=== PATIENT | male | born 1965 | race Caucasian/White ===

== ENCOUNTER 2020-01-01 07:14 | Outpatient (REF) | payer OTHER, SELFPAY | END 2020-01-01 07:15 | disposition home or self-care (01) | LOC: HO.LAB 07:14 | PROVIDERS: PCP Nurse Practitioner Family; Visit Provider Internal Medicine | DX: Z20.828 Contact with and (suspected) exposure to other viral communicable diseases (principal) | CPT/HCPCS: C9803; U0003 ==

== ENCOUNTER 2020-06-16 08:42 | Outpatient (REF) | payer OTHER, SELFPAY ==
--- NOTE | ~2020-06-16 | XR_ITS ---
EXAMINATION: XR CHEST CLINICAL INFORMATION: Dyspnea COMPARISON: None TECHNIQUE: 2 views of the chest were obtained. FINDINGS: The cardiac and mediastinal contours are normal. There is slight elevation of the right hemidiaphragm. There are increased markings best appreciated on the lateral view overlying the anterior lower lobes. This is questionable for atelectasis or small pneumonia. The lungs are otherwise clear. There is no pleural effusion or pneumothorax. Bony structures are unremarkable. XR/XR chest 2V IMPRESSION: Question lower lobe atelectasis or small pneumonia seen on the lateral view. Slightly elevated right hemidiaphragm.
[2020-06-16 11:22] LABS: MANUAL DIFF FLAG NO
[2020-06-16 11:30] LABS: Basophils Percent Auto 0.5 % (0-2); Eosinophils Absolute Auto 0.1 X10*3/uL (0.0-0.4); Hematocrit 45.9 % (42-52); Imm Gran Abs Auto 0.03 X10*3/uL (0.00-0.03); Imm Gran Pct Auto 0.4 % (0.0-0.4); Lymphocytes Absolute Auto 1.3 X10*3/uL (1.2-4.9); Lymphocytes Percent Auto 16.4 % (20-40); Mean Corpuscular HGB Conc 32.7 g/dl (31.0-36.0); Mean Corpuscular Hemoglobin 29.7 pg (27.0-33.0); Mean Corpuscular Volume 90.9 fL (80-98); Mean Platelet Volume 9.4 fL (9.4-12.4); Monocytes Absolute Auto 0.9 X10*3/uL (0.1-1.2); Monocytes Percent Auto 10.5 % (2-11); Neutrophils Absolute Auto 5.8 X10*3/uL (2.0-8.3); Neutrophils Percent Auto 71.2 % (45-73); Platelet Count 254 X10*3/uL (160-400); Red Blood Count 5.05 X10*6/uL (4.60-5.80); Red Cell Distribution Width 11.9 % (11.0-16.0); White Blood Count 8.2 X10*3/uL (4.8-10.8)
[2020-06-16 11:47] LABS: Anion Gap 15 (12-20); Blood Urea Nitrogen 19 mg/dL (9-16); Calcium 9.4 mg/dL (8.4-10.2); Carbon Dioxide 27 mmol/L (22-29); Chloride 102 mmol/L (96-108); Estimated Glomerular Filt Rate > 60; Glucose Random 94 mg/dL (60-115); Potassium 4.4 mmol/L (3.3-5.1); Sodium 140 mmol/L (135-145)
[2020-06-17 11:26] LABS: Lyme Abs Screen <0.90 index
== END 2020-06-16 08:43 | disposition home or self-care (01) ==
LOC: HO.LAB 08:42
PROVIDERS: Visit Provider Nurse Practitioner Family
DX: Z20.822 Contact with and (suspected) exposure to COVID-19 (principal); R06.00 Dyspnea, unspecified
CPT/HCPCS: 36415; 71046; 80048; 85025; 86617; 86618; U0003; U0005

== ENCOUNTER 2020-06-16 08:48 | Outpatient (REF) | payer OTHER, SELFPAY | END 2020-06-16 08:49 | disposition home or self-care (01) | LOC: HO.HMGCX 08:48 | PROVIDERS: PCP Nurse Practitioner Family; Visit Provider Nurse Practitioner Family | DX: Z13.89 Encounter for screening for other disorder (principal) ==

== ENCOUNTER 2020-09-11 06:58 | Outpatient (REF) | payer OTHER, SELFPAY ==
[2020-09-11 11:23] LABS: Glucose Urine UA NEG (NEG); Leukocyte Esterase Urine NEG (NEG); Nitrite Urine NEG (NEG); PH 6.5 (5.0-8.0); Urine Blood NEG (NEG); Urine Ketones NEG (NEG); Urine Protein NEG (NEG-TRACE)
[2020-09-11 11:29] LABS: Appearance Urine CLEAR; Color Urine YELLOW
[2020-09-11 11:35] LABS: Alanine Aminotransferase 34 U/L (0-40); Albumin Level 4.6 g/dL (3.5-5.0); Alkaline Phosphatase 67 U/L (39-117); Anion Gap 13 (12-20); Aspartate Amino Transferase 23 U/L (5-37); Bilirubin Total 0.6 mg/dL (0.0-1.0); Blood Urea Nitrogen 19 mg/dL (9-16); Calcium 9.9 mg/dL (8.4-10.2); Carbon Dioxide 26 mmol/L (22-29); Chloride 105 mmol/L (96-108); Cholesterol 245 mg/dL; Estimated Glomerular Filt Rate > 60; Glucose Fasting 87 mg/dL (60-99); HDL Cholesterol 41 mg/dL; LDL Cholesterol Calculated 152 mg/dl; Potassium 4.3 mmol/L (3.3-5.1); Sodium 140 mmol/L (135-145); Total Protein 7.4 g/dL (6.5-8.0); Triglycerides 263 mg/dL
[2020-09-11 11:57] LABS: Prostate Specific Antigen Scr 0.48 ng/mL (<0.05-4.0); TSH reflex Free T4 3.08 uIU/mL (0.32-4.0)
== END 2020-09-11 06:59 | disposition home or self-care (01) ==
LOC: HO.HMGCLDS 06:58
PROVIDERS: PCP Nurse Practitioner Family; Visit Provider Nurse Practitioner Family
DX: Z00.00 Encounter for general adult medical examination without abnormal findings (principal); Z12.5 Encounter for screening for malignant neoplasm of prostate
CPT/HCPCS: 36415; 80053; 80061; 81003; 84153; 84443

== ENCOUNTER 2020-10-06 08:03 | Outpatient (REF) | payer OTHER, SELFPAY ==
--- NOTE | ~2020-10-06 | MR_ITS ---
EXAMINATION: MR THORACIC SPINE WITHOUT CONTRAST CLINICAL INFORMATION: Pain in the thoracic spine. COMPARISON: Chest radiograph 06/16/2020. TECHNIQUE: MRI of the thoracic spine was obtained using routine sequences without contrast. FINDINGS: Alignment is normal. Vertebral body heights are preserved. No acute bone marrow signal changes. There is slight loss of intervertebral disc height and T2 signal intensity at multiple levels. There is a right central extrusion at T10-T11 with 1.3 cm caudal subligamentous extension of extruded disc material. Slightly bulging discs are also visualized at C6-C7 and C7-T1. No canal or neuroforaminal compromise. No cord compression or abnormal intramedullary signal changes. Limited visualization of intrathoracic anatomy reveals no abnormal finding. Specifically no paraspinal soft tissue mass or collection. MR/MR thoracic spine wo con IMPRESSION: There is a right central extrusion at T10-T11 with caudal subligamentous extension of extruded disc material. Slightly bulging discs are also visualized at C6-C7 and C7-T1. Otherwise unremarkable examination. No canal or neuroforaminal compromise within the thoracic spine. No cord compression or abnormal intramedullary signal changes.
== END 2020-10-06 08:04 | disposition home or self-care (01) ==
LOC: HO.MRI 08:03
PROVIDERS: PCP Nurse Practitioner Family; Visit Provider Nurse Practitioner Family
DX: M54.6 Pain in thoracic spine (principal)
CPT/HCPCS: 72146

== ENCOUNTER 2021-02-02 07:00 | Outpatient (RCR) | payer OTHER, SELFPAY ==
--- NOTE | 2020-12-08 10:29 | MHC.PT.EP ---
[facility] [place] Office [place] Office [place] [facility] [address] [phone] F: [phone] F: [phone] F: [phone] F: [phone] Physical Therapy Plan of Care Date of Evaluation: Date of Surgery: Diagnosis: thoracic spine pain Assessment: The patient arrived reporting pain in his thoracic spine and cervical spine. An MRI shows a disc extrusion at T10-T11, and a disc bulg at C6-C7-T1. 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 The patient was educated regarding sitting posture, posture while working, sleeping posture, and reductive stretches to help manage his pain throughout the day. He is a good candidate for skilled PT. Frequency and Duration: The patient will be seen 2x/week x 4 weeks. Short Term Goals: 1.Pt to able to demonstrate proper sitting posture with the use of a lumbar roll to decrease aggravating factors. 2.Pt to be able to demonstrate proper posture for common leisure activities such as phone/tablet use. 3.For the patient to demonstrate proper upright sitting posture with use of the lumbar roll to improve compliance and carryover. Supervisor Rolling Room Goals: 4 weeks - 1.The patient to demonstrate proper lifting mechanics for household chore activities to show improved functional mobility. 2.The patient to report no leg or hip pain in order to show centralization of pain and reduction of lumbar derangement 3. Pt to be able to demonstrate self management of lumbar pain by demonstration of HEP. Treatment Plan: Modalities to reduce pain, spasms and effusion. Manual therapy to restore motion and function. Therapeutic exercise to improve strength and flexibility. Neuromuscular re-education for posture and balance. Therapeutic activities to return to functional activities of daily living. Electronically signed by: Fariba Finney PT DPT Please sign and return to therapist. Thank you for your referral.
== END 2021-02-02 09:03 | disposition home or self-care (01) ==
LOC: HO.PT 07:00
PROVIDERS: PCP Nurse Practitioner Family; Visit Provider Nurse Practitioner Family
DX: M54.6 Pain in thoracic spine (principal)
CPT/HCPCS: 97110; 97112; 97162; 97530

== ENCOUNTER 2021-02-11 07:40 | Outpatient (REF) | payer OTHER, SELFPAY ==
[2021-02-11 11:19] LABS: Appearance Urine CLEAR; Color Urine YELLOW; Glucose Urine UA NEG (NEG); Leukocyte Esterase Urine NEG (NEG); Nitrite Urine NEG (NEG); PH 6.5 (5.0-8.0); Urine Blood NEG (NEG); Urine Ketones NEG (NEG); Urine Protein NEG (NEG-TRACE)
[2021-02-11 12:00] LABS: Cholesterol 226 mg/dL; HDL Cholesterol 53 mg/dL; LDL Cholesterol Calculated 145 mg/dl; Triglycerides 140 mg/dL
== END 2021-02-11 07:41 | disposition home or self-care (01) ==
LOC: HO.HMGCLDS 07:40
PROVIDERS: PCP Nurse Practitioner Family; Visit Provider Nurse Practitioner Family
DX: Z00.00 Encounter for general adult medical examination without abnormal findings (principal); E78.5 Hyperlipidemia, unspecified
CPT/HCPCS: 36415; 80061; 81003

== ENCOUNTER 2021-10-06 08:51 | Outpatient (REF) | payer OTHER, SELFPAY ==
--- NOTE | ~2021-10-06 | XR_ITS ---
EXAMINATION: XR KNEE, LEFT CLINICAL INFORMATION: Pain COMPARISON: None TECHNIQUE: Three views of the left knee. FINDINGS: No fracture or dislocation. No suprapatellar joint effusion. There is mild soft tissue swelling of the anterior knee. Joint spaces are maintained. XR/XR knee LT 3V IMPRESSION: Soft tissue swelling of the anterior knee without fracture.
== END 2021-10-06 08:52 | disposition home or self-care (01) ==
LOC: HO.HMGCX 08:51
PROVIDERS: PCP Nurse Practitioner Family; Visit Provider Family Medicine
DX: M25.562 Pain in left knee (principal)
CPT/HCPCS: 73562

== ENCOUNTER 2022-01-19 08:19 | Outpatient (REF) | payer OTHER, SELFPAY ==
[2022-01-19 11:23] LABS: MANUAL DIFF FLAG NO
[2022-01-19 11:34] LABS: Appearance Urine Clear; Color Urine Yellow; Glucose Urine UA Negative (Negative); Leukocyte Esterase Urine Negative (Negative); Nitrite Urine Negative (Negative); Urine Blood Negative (Negative); Urine Ketones Negative (Negative); Urine Protein Negative (Neg-Trace)
[2022-01-19 11:38] LABS: Basophils Percent Auto 0.6 % (0-2); Eosinophils Absolute Auto 0.1 X10*3/uL (0.0-0.4); Eosinophils Percent Auto 1.5 % (0-4); Hematocrit 46.1 % (42.0-52.0); Hemoglobin 14.9 g/dl (14.0-18.0); Imm Gran Abs Auto 0.02 X10*3/uL (0.00-0.03); Imm Gran Pct Auto 0.4 % (0.0-0.4); Lymphocytes Absolute Auto 1.8 X10*3/uL (1.2-4.9); Mean Corpuscular HGB Conc 32.3 g/dl (31.0-36.0); Mean Corpuscular Hemoglobin 29.9 pg (27.0-33.0); Mean Corpuscular Volume 92.6 fL (80.0-98.0); Mean Platelet Volume 9.5 fL (9.4-12.4); Monocytes Absolute Auto 0.6 X10*3/uL (0.1-1.2); Monocytes Percent Auto 10.2 % (2-11); Neutrophils Absolute Auto 2.9 x10*3/uL (2.0-8.3); Neutrophils Percent Auto 54.3 % (45-73); Platelet Count 207 X10*3/uL (160-400); Red Blood Count 4.98 X10*6/uL (4.60-5.80); Red Cell Distribution Width 12.3 % (11.0-16.0); White Blood Count 5.4 X10*3/uL (4.8-10.8)
[2022-01-19 12:12] LABS: Alanine Aminotransferase 38 U/L (0-40); Albumin Level 4.5 g/dL (3.5-5.0); Alkaline Phosphatase 67 U/L (39-117); Anion Gap 11 (12-20); Aspartate Amino Transferase 24 U/L (5-37); Bilirubin Total 0.5 mg/dL (0.0-1.0); Blood Urea Nitrogen 19 mg/dL (9-16); Calcium 9.7 mg/dL (8.4-10.2); Carbon Dioxide 30 mmol/L (22-29); Chloride 104 mmol/L (96-108); Cholesterol 225 mg/dL; Estimated Glomerular Filt Rate > 60; Glucose Fasting 99 mg/dL (60-99); HDL Cholesterol 52 mg/dL; LDL Cholesterol Calculated 142 mg/dl; Potassium 4.6 mmol/L (3.3-5.1); Sodium 140 mmol/L (135-145); TSH reflex Free T4 1.67 uIU/mL (0.32-4.0); Total Protein 6.9 g/dL (6.5-8.0); Triglycerides 157 mg/dL
== END 2022-01-19 08:20 | disposition home or self-care (01) ==
LOC: HO.HMGCLDS 08:19
PROVIDERS: PCP Nurse Practitioner Family; Visit Provider Nurse Practitioner Family
DX: Z00.00 Encounter for general adult medical examination without abnormal findings (principal)
CPT/HCPCS: 36415; 80053; 80061; 81003; 84443; 85025

== ENCOUNTER 2022-02-01 06:00 | Day surgery (SDC) | payer OTHER, SELFPAY ==
[2022-01-27 10:26] VITALS: BMI 26.0
--- NOTE | 2022-01-31 08:18 | P.CONAN_ITS ---
Documented by User: Viki Car NP 01/31/22 08:22 HPI - Anesthesia Eval Consult details Narrative: 56yo M for Left Hernia Repair Inguinal with mesh PMFSH Active Problems Active Problems: All Active Problems (Updated 01/26/22 @ 16:16 by Alycia Mishra RN) Generalized body aches (Acute) Dyspnea on exertion (Acute) Fever (Acute) Physical exam (Acute) Screening PSA (prostate specific antigen) (Acute) Thoracic back pain (Acute) Dyslipidemia (Acute) Thoracic disc herniation (Acute) Chest discomfort (Acute) Inguinal hernia (Acute) Left knee pain (Acute) Prepatellar bursitis (Acute) Physical exam (Acute) Inguinal hernia (Acute) HTN (hypertension) (Acute) Dyslipidemia (Acute) Family history of pancreatic cancer (Acute) Left inguinal hernia (Acute) Past Medical History Medical History Elevated cholesterol Family history of pancreatic cancer HTN (hypertension) Left inguinal hernia Family History Family History Maternal Aunt No problems noted. Father Substance use disorder Mother Substance use disorder Mental health disorder Maternal Grandfather Substance use disorder Maternal Grandmother Substance use disorder Paternal Grandfather Substance use disorder Paternal Uncle Substance use disorder Maternal Aunt Substance use disorder Paternal Aunt Substance use disorder Maternal Uncle Substance use disorder Family/Other Mental health disorder Surgical History Surgical History (Updated 01/27/22 @ 10:25 by Alycia Mishra RN) History of right inguinal hernia repair Hx of colonoscopy Social History Social History Housing: House Patient Tobacco Use Status: Former Tobacco user Years Smoked: 40 years ago e-Cigarette/Vaping Use: Never Used Second Hand Smoke Exposure: No Use of substances other than those prescribed or required for medical reasons: No Are you DNR?: No Advance Directives: No Advance Directives Information Provided: Yes Recently lost weight without trying: No service: No Current occupational status: employed 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 Current occupational exposures/hazards: No Cognitive needs: No Hearing needs: No Vision needs: No Meds Allergies Allergy/AdvReac Type Severity Reaction Status Date / Time rosuvastatin [Crestor] AdvReac Unknown muscle Verified 01/27/22 10:25 cramping Exam Exam Date and Time: January 31, 202218 Height,Weight and Vital Signs: Height 5 ft 8 in Weight 77.678 kg Pertinent Lab Results Pertinent Lab Results: Laboratory Tests 01/19/22 01/19/22 08:29 08:29 WBC 5.4 Hgb 14.9 Hct 46.1 Plt Count 207 Sodium 140 Potassium 4.6 Chloride 104 Carbon Dioxide 30 H BUN 19 H Creatinine 0.98 Narrative Narrative: EKG 09/2021 NSR @ 61 Assessment and Plan Assessment Anesthesia Assessment: Chart Reviewed Documented by User: Mayela Matthew MD 02/01/22 07:25 PMF Past Medical History Medical History Elevated cholesterol Family history of pancreatic cancer HTN (hypertension) Left inguinal hernia Family History Family History Maternal Aunt No problems noted. Father Substance use disorder Mother Substance use disorder Mental health disorder Maternal Grandfather Substance use disorder Maternal Grandmother Substance use disorder Paternal Grandfather Substance use disorder Paternal Uncle Substance use disorder Maternal Aunt Substance use disorder Paternal Aunt Substance use disorder Maternal Uncle Substance use disorder Family/Other Mental health disorder Family history of problems with anesthesia: No Surgical History Surgical History (Updated 01/27/22 @ 10:25 by Alycia Mishra RN) History of right inguinal hernia repair Hx of colonoscopy History of Problems with Anesthesia: No Social History Social History Housing: House Patient Tobacco Use Status: Former Tobacco user Years Smoked: 40 years ago e-Cigarette/Vaping Use: Never Used Second Hand Smoke Exposure: No Use of substances other than those prescribed or required for medical reasons: No Are you DNR?: No Advance Directives: No Advance Directives Information Provided: Yes Recently lost weight without trying: No service: No Current occupational status: employed 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 Current occupational exposures/hazards: No Cognitive needs: No Hearing needs: No Vision needs: No Meds Allergies Allergy/AdvReac Type Severity Reaction Status Date / Time rosuvastatin [Crestor] AdvReac Unknown muscle Verified 01/27/22 10:25 cramping Exam Airway Mallampati Class: II TM Dist: >3cm Neck ROM: Full Loose/Missing/Broken Teeth: No Heart: rr Lungs: cta Assessment and Plan Final Anesthetic Review Family History of Problems with Anesthesia: No History of Problems with Anesthesia: No NPO: Yes ASA Class: II Final Preanesthetic Review: No Changes in Pt Med Stat, Meds/Allgs Chart Reviewed, Consent Obtained/Reviewed and Anes Risks/Benef Reviewed Patient Risk: Low Procedure Risk: Intermediate Anesthetic Plan Anesthetic Plan: GA and Agree w/ Assess. and Plan Disposition: Standard PACU
[2022-02-01] VITALS (17 sets, daily range): BP systolic 141–176; BP diastolic 92–103; PULSE 49–74; RESP 16–20; TEMP 36.2–37.2; O2SAT 95–100; BMI 25.5
[2022-02-01] MEDS: Lactated Ringers 1,000 ML 100 ML IVCONT (06:36)
--- NOTE | 2022-02-01 07:17 | P.HPSUR_ITS ---
Pre-Procedural Eval Section A Date of Service: 02/01/22 Section B Chief Complaint: Unilateral inguinal hernia, without obstruction or Details of Present Illness: left inguinal hernia, reducible Relevant Social History: None Present Medications: see Short Stay Collaborative assessment Medical History: Significant History (dyslipidemia, HTN) Allergies: Allergies Allergy/AdvReac Type Severity Reaction Status Date / Time rosuvastatin [Crestor] AdvReac Unknown muscle Verified 01/27/22 10:25 cramping Review of Systems Sugical H&P ROS: Negative: Constitution, Cardiovascular, Respiratory, Neurological, Psychiatric, Hem-Onc, Allergic/Immunologic, Gastrointestinal, Genitourinary, Musculoskeletal, Integumentary, Endocrine and Eyes/Ears/Nose/Throat Exam Surgical H&P Exam: Normal: HEENT, Normal: Heart, Normal: Lungs, Normal: Extrem ities, Normal: Skin and Normal: Neurological and Significant Findings: Abdomen (left ing hernia reducible) Plan Diagnosis/Plan: Unchanged I have reviewed the history and physical and performed a pertinent physical examination on my patient. No changes have occurred unless specified. Time Spent With Patient Time: Total time managing care of this patient today ____ minutes.
--- NOTE | 2022-02-01 08:23 | P.OP_ITS ---
Operative Note Operative Note Date of Service: 02/01/22 Narrative: Preop diagnosis: Left inguinal hernia Postop diagnosis: Left inguinal hernia, direct Procedure: Repair of a left inguinal hernia with mesh Surgeon: Saúl Driscoll MD physical laboratory assistant: DAVID Dempsey Patient is a 56-year-old male with a reducible mass of the left groin consistent with a left inguinal hernia. He understood the technique of repair with mesh. He is aware of the risks, benefits, and alternatives. He was placed fine on the OR table under general anesthesia via laryngeal mask airway. The left groin was prepped and draped in usual sterile fashion. A surgical time-out was done. The patient received cefazolin 2 g IV preoperatively I marked my planned line of incision along an imaginary line from the anterior superior iliac spine to the pubic ramus. I had filtrated this area with lidocaine 1%. I made a short incision using blade 15 and this was carried down with electrocautery through the full-thickness of the skin and subcutaneous fat to expose the external oblique aponeurosis. I bluntly dissected the neurosis using gauze to define the external ring. I made an incision on the external oblique fibers using blade 15. And extended this inferomedially to connect with the external ring. The inguinal canals at her entered. I applied hemostats on the divided edges of the aponeurosis. I bluntly dissected the underside to create space for the mesh. Then proceeded to gently and bluntly dissect the cord using my index finger. There was note of a large hernia containing fat. this from the rest of the cord contents until was completely reduced. This was going to the floor of the canal consistent with direct hernia. I was able to identify the cord contents but we had difficulty locating for the vas deferens as there was a lot of scarring in the area as well. I was able to pass a [place] drain around what we identified as the cord contents. However, I will could not clearly identify the vas deferens despite having adequately the cord contents the hernia sac. I proceeded to then reinforce the floor a canal with the Prolene plug. The plug was secured with Prolene 2 sutures to shelving edge of the inguinal and laterally and the internal oblique superiorly and medially. In force the floor of the canal with a keyhole mesh. The tails of the mesh were passed around the cord at the level of the turned a ring and were secured together with Prolene 2 sutures. I flattened the mesh and secured this to the pubic ramus inferomedially, and the internal oblique medially as superiorly as well as the shelving edge of the inguinal meant laterally I irrigated. I observed for hemostasis. Once hemostasis was ensured I proceeded to then remove the [place] drain and closed the external oblique aponeurosis were running Dexon 2-0 stitch to re-create the external ring. The subcutaneous layer was reapposed with Dexon 3-0 interrupted sutures. Skin closure was achieved with Dexon 4-0 subcuticular running stitch. Steri-Strips and dressings were applied. The incision was infiltrated with Marcaine 0.5% for postop analgesia. The procedure was completed The patient tolerated well. There were no immediate complications. Initial and final counts sponges and instruments were correct. Estimated blood loss was less than 25 cc The patient was extubated without difficulty and transferred to the recovery room with stable vital signs.
[2022-02-01] MEDS: oxyCODONE HCl Immed Release 5 MG TABLET PO (09:13)
[2022-02-01] MEDS: fentaNYL citrate/PF 100 MCG/2 ML VIAL 25 MCG IVPUSH ×3 (09:14→09:58)
[2022-02-01] MEDS: Ketorolac Tromethamine 30 MG/ML VIAL 15 MG IVPUSH (09:18)
[2022-02-01] MEDS: Acetaminophen 325 MG TABLET 650 MG PO (09:19)
== END 2022-02-01 11:37 | disposition home or self-care (01) ==
PROVIDERS: PCP Nurse Practitioner Family; Visit Provider Surgery
PROC: (CPT 49505; principal; 2022-02-01 07:30)
DX: K40.90 Unilateral inguinal hernia, without obstruction or gangrene, not specified as recurrent (principal); Z80.0 Family history of malignant neoplasm of digestive organs; I10 Essential (primary) hypertension; E78.5 Hyperlipidemia, unspecified; Z79.899 Other long term (current) drug therapy; Z88.8 Allergy status to other drugs, medicaments and biological substances; Z87.891 Personal history of nicotine dependence
CPT/HCPCS: 49505; C1781; J0690; J1885; J2250; J2550; J2795; J3010

== ENCOUNTER → 2022-02-16 15:44 | Outpatient (BNVA) | payer OTHER, SELFPAY | PROVIDERS: PCP Nurse Practitioner Family; Visit Provider Surgery | DX: K40.90 Unilateral inguinal hernia, without obstruction or gangrene, not specified as recurrent (principal) ==

== ENCOUNTER 2022-07-22 07:32 | Outpatient (REF) | payer OTHER, SELFPAY ==
[2022-07-22 11:18] LABS: MANUAL DIFF FLAG NO
[2022-07-22 11:35] LABS: Appearance Urine Clear; Color Urine Yellow; Glucose Urine UA Negative (Negative); Leukocyte Esterase Urine Negative (Negative); Nitrite Urine Negative (Negative); Urine Blood Negative (Negative); Urine Ketones Negative (Negative); Urine Protein Negative (Neg-Trace)
[2022-07-22 11:44] LABS: Basophils Percent Auto 0.4 % (0-2); Eosinophils Absolute Auto 0.1 X10*3/uL (0.0-0.4); Eosinophils Percent Auto 1.3 % (0-4); Hematocrit 46.5 % (42.0-52.0); Imm Gran Abs Auto 0.03 X10*3/uL (0.00-0.03); Imm Gran Pct Auto 0.4 % (0.0-0.4); Lymphocytes Absolute Auto 2.3 X10*3/uL (1.2-4.9); Lymphocytes Percent Auto 30.1 % (20-40); Mean Corpuscular HGB Conc 32.3 g/dl (31.0-36.0); Mean Corpuscular Hemoglobin 30.4 pg (27.0-33.0); Mean Corpuscular Volume 94.1 fL (80.0-98.0); Mean Platelet Volume 9.8 fL (9.4-12.4); Monocytes Absolute Auto 0.6 X10*3/uL (0.1-1.2); Monocytes Percent Auto 8.5 % (2-11); Neutrophils Absolute Auto 4.5 x10*3/uL (2.0-8.3); Neutrophils Percent Auto 59.3 % (45-73); Platelet Count 193 X10*3/uL (160-400); Red Blood Count 4.94 X10*6/uL (4.60-5.80); Red Cell Distribution Width 12.3 % (11.0-16.0); White Blood Count 7.6 X10*3/uL (4.8-10.8)
[2022-07-22 12:15] LABS: Alanine Aminotransferase 29 U/L (0-40); Albumin Level 4.5 g/dL (3.5-5.0); Alkaline Phosphatase 69 U/L (39-117); Anion Gap 11 (12-20); Aspartate Amino Transferase 22 U/L (5-37); Bilirubin Total 0.6 mg/dL (0.0-1.0); Blood Urea Nitrogen 18 mg/dL (9-16); Calcium 9.8 mg/dL (8.4-10.2); Carbon Dioxide 30 mmol/L (22-29); Chloride 102 mmol/L (96-108); Cholesterol 207 mg/dL; Estimated Glomerular Filt Rate > 60; Glucose Fasting 80 mg/dL (60-99); HDL Cholesterol 61 mg/dL; LDL Cholesterol Calculated 125 mg/dl; Potassium 4.7 mmol/L (3.3-5.1); Sodium 138 mmol/L (135-145); Total Protein 7.2 g/dL (6.5-8.0); Triglycerides 106 mg/dL
[2022-07-22 12:19] LABS: Prostate Specific Antigen Scr 0.55 ng/mL (<0.05-4.0); TSH reflex Free T4 1.98 uIU/mL (0.32-4.0)
== END 2022-07-22 07:33 | disposition home or self-care (01) ==
LOC: HO.HMGCLDS 07:32
PROVIDERS: PCP Nurse Practitioner Family; Visit Provider Nurse Practitioner Family
DX: E78.5 Hyperlipidemia, unspecified (principal); I10 Essential (primary) hypertension; Z12.5 Encounter for screening for malignant neoplasm of prostate
CPT/HCPCS: 36415; 80053; 80061; 81003; 84153; 84443; 85025

== ENCOUNTER 2023-05-16 08:49 | Outpatient (AMB) | payer OTHER, SELFPAY ==
[2023-05-16 09:19] VITALS: BP 160/90; PULSE 88; TEMP 36.6; O2SAT 96; BMI 25.8
--- NOTE | 2023-05-16 09:19 | AM.OFFWIN_ITS ---
Intake Vital Signs 05/16/23 09:19 Height 5 ft 8 in Weight 170 lb BMI 25.8 BP 160/90 H Blood Pressure Location Lt brachial Position Sitting Pulse 88 Pulse Source Pulse Oximeter Temp 97.9 F Temp Source Temporal Artery Scan Pulse Oximetry (%) 96 Oxygen Delivery Method Room Air Intake Visit Reasons: EP Herniated disc pain Intake Note: pt is here today for herniated disc plate started 10 days ago Patient Tobacco Use Status: Former Tobacco user Allergies rosuvastatin [Crestor] Adverse Reaction (Unknown, Verified 05/16/23 10:00) muscle cramping Medication List - Last Reconciled 05/16/23 by Sage Meneses MD atorvastatin 20 mg PO BEDTIME coenzyme Q10 30 mg PO DAILY 90 days ibuprofen 600 mg PO Q6H PRN Do you need a note to return to daycare/school/sports/work: No HPI EP Herniated disc pain HPI Details 58-year-old male presents to the office for a sick visit. Patient is having a flare-up of his lower back pain and sciatica symptoms. Symptoms started 2 weeks ago after he returned from a trip to [facility]. He gives history of cervical thoracic and lumbar disc prolapses with surgery done in the past. Self-employed. Currently taking Advil and prednisone. No fevers or chills. No nausea or vomiting. His who also returned from [facility] was scheduled for a routine preop and a skin swab was positive for Staphylococcus. FORMERLY [facility], [facility]–1983 Medical History Elevated cholesterol Family history of pancreatic cancer HTN (hypertension) Left inguinal hernia Surgical History History of right inguinal hernia repair Hx of colonoscopy Family History Maternal Aunt No problems noted. Father Substance use disorder Mother Substance use disorder Mental health disorder Maternal Grandfather Substance use disorder Maternal Grandmother Substance use disorder Paternal Grandfather Substance use disorder Paternal Uncle Substance use disorder Maternal Aunt Substance use disorder Paternal Aunt Substance use disorder Maternal Uncle Substance use disorder Family/Other Mental health disorder Social History Housing: House Patient Tobacco Use Status: Former Tobacco user Years Smoked: 40 years ago e-Cigarette/Vaping Use: Never Used Second Hand Smoke Exposure: No service: No Current occupational status: employed 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 Current occupational exposures/hazards: No Cognitive needs: No Hearing needs: No Vision needs: No Physical Exam Vital Signs: Last Vital Signs Temp 97.9 F 05/16/23 09:19 Pulse 88 05/16/23 09:19 BP 160/90 H 05/16/23 09:19 Pulse Ox 96 05/16/23 09:19 Oxygen Delivery Method Room Air 05/16/23 09:19 BMI result Body Mass Index 25.8 Const General: cooperative and healthy appearing Nutritional Appearance: well nourished Orientation/consciousness: patient oriented x3 Limitations: no limitations HEENT Head: Yes normal to inspection Eyes General: appearance normal, both eyes and all related structures Neck Neck: Yes normal visual inspection Chest Chest palpation & inspection: normal palpation of entire chest wall Resp Effort & Inspection: normal respiratory effort General: Yes no CVA tenderness Back/Spine/Pelvis Other: No spinal tenderness. No paraspinal spasm. Back: no CVA tenderness Neuro General: patient oriented x3 Assessment & Plan Assessment & Plan (1) Lower thoracic back pain: Code(s): M54.6 - Pain in thoracic spine Plan: Meloxicam, cyclobenzaprine and prednisone called in. Stretching exercises suggested. Very unlikely symptoms due to infectious etiology. However since has come down with Staphylococcus infection, routine blood work was o rdered. Orders: Orders Complete Blood Count no Diff Today M54.6 - Pain in thoracic spine Basic Metabolic Panel Today M54.6 - Pain in thoracic spine Liver Panel Today M54.6 - Pain in thoracic spine Erythrocyte Sedimentation Rate Today M54.6 - Pain in thoracic spine Medications: New prednisone 10 mg PO DAILY 7 tabs 0RF meloxicam 15 mg PO DAILY 14 tabs 0RF cyclobenzaprine 10 mg PO BEDTIME 14 tabs 0RF Coding Level of Care Code Est Pt Level 4 (74792) Diagnoses Lower thoracic back pain M54.6
== END 2023-05-16 10:10 | disposition home or self-care (01) ==
PROVIDERS: PCP Nurse Practitioner Family; Visit Provider Internal Medicine
DX: M54.6 Pain in thoracic spine (principal)
CPT/HCPCS: 99214

== ENCOUNTER 2023-05-16 09:58 | Outpatient (REF) | payer OTHER, SELFPAY ==
[2023-05-16 13:01] LABS: Hematocrit 44.6 % (42.0-52.0); Hemoglobin 14.6 g/dl (14.0-18.0); Mean Corpuscular HGB Conc 32.7 g/dl (31.0-36.0); Mean Corpuscular Hemoglobin 29.7 pg (27.0-33.0); Mean Corpuscular Volume 90.8 fL (80.0-98.0); Mean Platelet Volume 9.7 fL (9.4-12.4); Platelet Count 301 X10*3/uL (160-400); Red Blood Count 4.91 X10*6/uL (4.60-5.80); Red Cell Distribution Width 11.9 % (11.0-16.0); White Blood Count 11.5 X10*3/uL (4.8-10.8)
[2023-05-16 13:45] LABS: Alanine Aminotransferase 23 U/L (0-40); Albumin Level 4.4 g/dL (3.5-5.0); Alkaline Phosphatase 104 U/L (39-117); Anion Gap 15 (12-20); Aspartate Amino Transferase 14 U/L (5-37); Bilirubin Direct 0.1 mg/dL (0.0-0.5); Bilirubin Total 0.3 mg/dL (0.0-1.0); Blood Urea Nitrogen 23 mg/dL (9-16); Calcium 10.6 mg/dL (8.4-10.2); Carbon Dioxide 24 mmol/L (22-29); Chloride 105 mmol/L (96-108); Erythrocyte Sedimentation Rate 46 MM/HR (0-15); Estimated Glomerular Filt Rate > 60; Glucose Random 77 mg/dL (60-115); Potassium 4.2 mmol/L (3.3-5.1); Sodium 140 mmol/L (135-145); Total Protein 8.4 g/dL (6.5-8.0)
== END 2023-05-16 09:59 | disposition home or self-care (01) ==
LOC: HO.HMGCLDS 09:58
PROVIDERS: PCP Nurse Practitioner Family; Visit Provider Internal Medicine
DX: M54.6 Pain in thoracic spine (principal)
CPT/HCPCS: 36415; 80048; 80076; 85027; 85652

== ENCOUNTER 2023-05-24 08:30 | Outpatient (AMB) | payer OTHER, SELFPAY ==
--- NOTE | 2023-05-24 08:30 | AM.OFFWIN_ITS ---
Intake Vital Signs 05/24/23 08:31 Height 5 ft 8 in Weight 173 lb 2 oz BMI 26.3 BP 158/100 H Blood Pressure Location Rt brachial Position Sitting Pulse 85 Pulse Source Pulse Oximeter Temp 97.3 F Temp Source Temporal Artery Scan Pulse Oximetry (%) 97 Oxygen Delivery Method Room Air Intake Visit Reasons: EP back/neck/chest pain (lobby) Intake Note: Pt presents to the office today for c/o back,neck, and chest pain. Pt states this has been going on for about 3 weeks. Pt states he was here last monday and he got blood work done already for this issue. Patient Tobacco Use Status: Former Tobacco user Allergies rosuvastatin [Crestor] Adverse Reaction (Unknown, Verified 05/24/23 08:30) muscle cramping HPI HPI Comments History of Present Illness Details He presents to office with chest, neck and back pain States 1 month ago (April 26) returned from [place] and had ST He said he had an upset stomach associated Then pt said it progressed to SI joint oain Pain moved to upper back region Now has tightness in upper back which wraps around chest wall States difficult to take a deep breath Was seen here on 05/15 and given cyclobenzaprine, prednisone and meloxicam. He stopped these medicines and said ibuprofen is the only thing that helps He said he can't take a deep breath; pain wraps around chest and back Intermittent cough for a while Denies leg swelling, calf pain, hx of clot or palpitations He states he is aware of his htn and him and primary try to manage conservatively. He said it is usually 90 diastolic PFSH Medical History Elevated cholesterol HTN (hypertension) Family history of pancreatic cancer Left inguinal hernia Surgical History History of right inguinal hernia repair Hx of colonoscopy Family History Maternal Aunt No problems noted. Father Substance use disorder Mother Substance use disorder Mental health disorder Maternal Grandfather Substance use disorder Maternal Grandmother Substance use disorder Paternal Grandfather Substance use disorder Paternal Uncle Substance use disorder Maternal Aunt Substance use disorder Paternal Aunt Substance use disorder Maternal Uncle Substance use disorder Family/Other Mental health disorder Social History Housing: House Patient Tobacco Use Status: Former Tobacco user Years Smoked: 40 years ago e-Cigarette/Vaping Use: Never Used Second Hand Smoke Exposure: No service: No Current occupational status: employed 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 Current occupational exposures/hazards: No Cognitive needs: No Hearing needs: No Vision needs: No Review of Systems Const Reports body aches, Denies chills, Reports fatigue, Denies fever(s), Reports headache(s), Denies weight gain and Denies weight loss Eyes Denies blurry vision ENT Denies vertigo, Denies dizziness, Denies otalgia, Reports headache(s), Denies nasal congestion, Denies nasal discharge, Reports sore throat (resolved) and Denies tongue swelling Card Reports chest pain, Denies chest pain at rest, Denies syncope, Denies rapid heart rate, Denies leg ulcers, Denies leg edema and Reports dyspnea (difficult to take a deep breath) Resp Reports cough (chronic) and Reports dyspnea (difficult to take a deep breath) Musc Reports back pain, Reports myalgias and Denies joint swelling Skin/Breast Denies rash and Reports other (tick bites) Neuro Denies vertigo, Denies dizziness, Denies syncope and Reports headache(s) Endo Reports fatigue Aller/Immun Denies tongue swelling Physical Exam Vital Signs: Last Vital Signs Temp 97.3 F 05/24/23 08:31 Pulse 85 05/24/23 08:31 BP 158/100 H 05/24/23 08:31 Pulse Ox 97 05/24/23 08:31 Oxygen Delivery Method Room Air 05/24/23 08:31 BMI result Body Mass Index 26.3 General: Non-toxic, NAD. Speaking full sentences. Skin: Warm dry throughout Eye: EOMI HENT: Airway patent. Uvula midline. No pharyngeal erythema or edema. No CAR SEALER. Bilateral canals clear. TM non-erythematous, non-bulging. No TM perforation or hemotympanum noted. Respiratory: CTA bilaterally. No wheezes, rales or rhonchi. But pt resisted taking deep breath. Hesitation noted. Cardiac: RRR. No murmur. No leg edema or calf tenderness Abdominal: BS present. Non-tender throughout. No palpable masses. No abdominal distention or pusatile mass. MSK: No midline tenderness. + tenderness to palpation L side of neck/L upper trapezius muscle. Negative SLR. No sciatic tenderness. Limited ROM upper extremities. Neurology: A/O. No aphasia or facial droop. Gait without abnormality Psych: Good mood and affect Assessment & Plan Assessment & Plan (1) Chest tightness: Code(s): R07.89 - Other chest pain Plan: Patient seen and evaluated. He is hypertensive on examination today and was last week and he saidhe is aware of this O2 is stable and HR not tachycardic EKG: NSR. No stemi or ST changes Chest xray: i read as negative discussed with pt we will obtain d-dimer, rheymatoid factor and tick tests He has to get labs [facility] at [facility] due to stat nature of d-dimer. Patient gave verbal understanding and had no additional questions or concerns at time of discharge All questions answered He was called about Rheymatoid factor and d-dimer and will go to ED for chest CTA (2) Body aches: Code(s): R52 - Pain, unspecified Plan: see above (3) Elevated erythrocyte sedimentation rate: Code(s): R70.0 - Elevated erythrocyte sedimentation rate Plan: see above Orders: Orders AMB EKG-In Office Today R07.89 - Other chest pain D Dimer High Sensitivity Today R07.89 - Other chest pain XR chest 2V Today R07.89 - Other chest pain Lyme IgG/IgM w/reflex to WB Today R52 - Pain, unspecified Ehrlichia Anaplasma Ab Panel Today R52 - Pain, unspecified Babesia IgG/IgM Today R52 - Pain, unspecified Rheumatoid Factor Today R52 - Pain, unspecified, R70.0 - Elevated erythrocyte sedimentation rate Coding Level of Care Code Est Pt Level 4 (90944) Diagnoses Chest tightness R07.89 Body aches R52 Elevated erythrocyte sedimentation rate R70.0
[2023-05-24 08:31] VITALS: BP 158/100; PULSE 85; TEMP 36.3; O2SAT 97; BMI 26.3
== END 2023-05-24 09:30 | disposition home or self-care (01) ==
PROVIDERS: PCP Nurse Practitioner Family; Visit Provider Physician Assistant
DX: R07.89 Other chest pain (principal); R70.0 Elevated erythrocyte sedimentation rate
CPT/HCPCS: 93000; 99214

== ENCOUNTER 2023-05-24 08:58 | Outpatient (REF) | payer OTHER, SELFPAY ==
--- NOTE | ~2023-05-24 | XR_ITS ---
EXAMINATION: XR CHEST CLINICAL INFORMATION: Chest pain. COMPARISON: 06/16/2020 TECHNIQUE: 2 views of the chest were obtained. FINDINGS: The lungs are well expanded. No focal consolidation. No pleural effusion. Cardiac silhouette is unchanged. XR/XR chest 2V IMPRESSION: No acute abnormality.
[2023-05-24 10:53] LABS: Rheumatoid Factor < 13.0 IU/mL (<15.0)
[2023-05-24 11:08] LABS: D Dimer High Sensitivity 250 NG/ML
[2023-05-25 08:39] LABS: Lyme Abs Screen <0.90 index
[2023-05-29 11:34] LABS: A. Phagocytophilum Ab IgG <1:64 (<1:64); A. Phagocytophilum Ab IgM <1:20 (<1:20); E. Chaffeensis Ab IgG <1:64 (<1:64); E. Chaffeensis Ab IgM <1:20 (<1:20)
[2023-05-29 15:28] LABS: Babesia IgG <1:64 titer (<1:64); Babesia IgM <1:20 titer (<1:20)
== END 2023-05-24 08:59 | disposition home or self-care (01) ==
LOC: HO.HMGCX 08:58
PROVIDERS: PCP Nurse Practitioner Family; Visit Provider Physician Assistant
DX: R07.89 Other chest pain (principal); R70.0 Elevated erythrocyte sedimentation rate
CPT/HCPCS: 36415; 71046; 85379; 86431; 86617; 86618; 86666; 86753

== ENCOUNTER 2023-05-24 13:06 | Emergency (ER) | payer OTHER, SELFPAY ==
--- NOTE | ~2023-05-24 | CT_ITS ---
EXAMINATION: CT ANGIOGRAM OF THE CHEST WITH AND WITHOUT CONTRAST (CT PULMONARY ANGIOGRAM FOR PE) CLINICAL INFORMATION: Reason for Exam elevated dimer COMPARISON: None available. TECHNIQUE: Prior to contrast administration, noncontrast localization images were obtained. Subsequently, multidetector volumetric imaging was performed from the thoracic inlet to below the diaphragms following the administration of 65 mL Omnipaque 350 intravenous contrast. No contrast reaction reported Sagittal, coronal, and MIP oblique sagittal reformatted images were obtained on the CT workstation, uploaded to PACS, and reviewed. This CT examination was performed using dose optimization techniques as appropriate, variously including the following: *Automated exposure control *Adjustment of mA and/or kV according to patient size (this includes techniques or standardized protocols for targeted exams where dose is matched to indication/reason for exam; i.e. extremities or head) *Use of iterative reconstruction technique Total exam dose-length product 313 mGy-cm FINDINGS: QUALITY OF STUDY/CONTRAST BOLUS: Satisfactory. PULMONARY ARTERIES: No pulmonary emboli. THORACIC AORTA: No aneurysm. LUNG: There is atelectatic change at the lung bases associated with elevation of the right hemidiaphragm on the right. The lungs are otherwise clear. PLEURA: No pleural effusion or pneumothorax. MEDIASTINUM: Normal heart size. No pericardial effusion. No hilar or mediastinal lymphadenopathy. No evidence of septal bowing or right heart strain. CORONARY ARTERY CALCIFICATION: Mild. CHEST WALL/AXILLA: No axillary or internal mammary lymphadenopathy. OSSEOUS STRUCTURES: No acute or suspicious osseous abnormality. UPPER ABDOMEN: Unremarkable. No reflux of contrast into the hepatic veins to suggest elevated right heart pressures. CT/CT angio chest PE protocol IMPRESSION: 1. No evidence for pulmonary embolism. 2. Mild bibasilar atelectasis. VTE: negative.
[2023-05-24 14:00] VITALS: BP 176/108; PULSE 86; RESP 18; TEMP 36.6; O2SAT 97; BMI 25.1
--- NOTE | 2023-05-24 14:01 | ED_ITS ---
HPI - Recheck/Abnormal Lab/Rx General Chief Complaint: Dyspnea Stated Complaint: possible blood clot ? Time Seen by Provider: 05/24/23 22:39 Source: patient Mode of arrival: ambulatory Limitations: no limitations History of Present Illness HPI narrative: Patient with history of hypertension recently traveled to [facility] 04/20 till 04/28 patient felt sick with upper respiratory symptoms came home was feeling better for last 2 weeks noticed body aches or joint pain no rash no fever does have slight cough and whenever he takes a deep breath feels less air in his lungs no chest pain patient was seen by PCP D-dimer was 250 anastomosis panel was sent said it was 46 , patient had multiple mosquito bite there no leg pain Related Data Previous Rx's ?Medication ?Instructions ?Recorded ibuprofen 600 mg tablet 600 mg PO Q6H PRN pain #30 tabs 02/01/22 atorvastatin 20 mg tablet 20 mg PO BEDTIME #40 tabs 09/16/22 coenzyme Q10 30 mg capsule 30 mg PO DAILY 90 days #90 caps 01/09/23 cyclobenzaprine 10 mg tablet 10 mg PO BEDTIME #14 tabs 05/16/23 meloxicam 15 mg tablet 15 mg PO DAILY #14 tabs 05/16/23 prednisone 10 mg tablet 10 mg PO DAILY #7 tabs 05/16/23 benzonatate 200 mg capsule 200 mg PO TID PRN cough #20 caps 05/25/23 doxycycline hyclate 100 mg tablet 100 mg PO BID #20 tabs 05/25/23 Allergies Allergy/AdvReac Type Severity Reaction Status Date / Time rosuvastatin [Crestor] AdvReac Unknown muscle Verified 05/24/23 14:04 cramping Review of Systems 2 Review of Systems: Yes all other systems are reviewed and are negative [facility] Past Medical History Medical History Elevated cholesterol HTN (hypertension) Family history of pancreatic cancer Left inguinal hernia Surgical History History of right inguinal hernia repair Hx of colonoscopy Family History Family History Maternal Aunt No problems noted. Father Substance use disorder Mother Substance use disorder Mental health disorder Maternal Grandfather Substance use disorder Maternal Grandmother Substance use disorder Paternal Grandfather Substance use disorder Paternal Uncle Substance use disorder Maternal Aunt Substance use disorder Paternal Aunt Substance use disorder Maternal Uncle Substance use disorder Family/Other Mental health disorder Social History Social History Housing: House Patient Tobacco Use Status: Former Tobacco user Years Smoked: 40 years ago e-Cigarette/Vaping Use: Never Used Second Hand Smoke Exposure: No Use of substances other than those prescribed or required for medical reasons: No Advance Directives: Yes Advance Directives Information Provided: No Advance Directives on File: No service: No Current occupational status: employed Current occupation: [email or web address] man Current occupational exposures/hazards: No Cognitive needs: No Hearing needs: No Vision needs: No Physical Exam 2 Vital Signs: Vital Signs: Last Vital Signs Temp 97.7 F 05/25/23 01:19 Pulse 80 05/25/23 01:19 Resp 18 05/25/23 01:19 BP 140/92 H 05/25/23 01:19 Pulse Ox 96 05/25/23 01:19 O2 Del Method Room Air 05/25/23 01:19 BMI result Body Mass Index 25.1 Appearance: Alert. Oriented X3. No acute distress. Eyes: PERRLA, No Nystagmus ENT: Pharynx normal. Oral Mucosa moist Neck: Normal inspection. Neck supple. CVS: Normal heart rate and rhythm. Pulses normal. Respiratory: No respiratory distress. Equal air entry bilateral, no wheezing/rales/rhonchi Abdomen: Soft and nontender. Bowel sounds are present, no mass palpable, no CVA tenderness Skin: Skin warm and dry. Normal skin color. Normal skin turgor. Extremities: No lower extremity edema. No calf tenderness Neuro: Oriented X 3. No motor deficit. No sensory deficit.No cerebellar signs , cranial nerves II-XII intact Course Course Course Narrative: RME: 58 yo male?hx of HTN, HDL here for eval of shortness of breath, chest tightness, and myalgias that began approximately 1 month ago after returning from [place] on 04/24/23. states ddimer this morning at urgent care was elevated to 250. denies fevers, chills, sore throat, cough, hemoptysis, nausea or vomiting. vaccinations UTD. No known tick or insect bites. age adjusted dimer 89 however given history, will order CTA chest. labs, ekg, cx, CTA ordered. Full HPI, ROS and PE to be performed by the primary ED provider. Medications Administered Discontinued Medications Generic Name Dose Route Start Last Admin Trade Name Monik PRN Reason Stop Dose Admin Acetaminophen 650 mg 05/24/23 21:58 05/24/23 21:59 Acetaminophen 325 Mg Tablet PO 05/24/23 21:59 650 mg ONCE ONE Administration Doxycycline Monohydrate 100 mg 05/25/23 00:37 05/25/23 00:51 Doxycycline Monohydrate 100 Mg Capsule PO 05/25/23 00:38 100 mg ONCE ONE Administration Iohexol 65 ml 05/24/23 22:40 05/24/23 22:41 Iohexol 350 Mg/Ml 100 Ml Infus..Btl IV 05/24/23 22:41 65 ml ONCE ONE Administration Medical Decision Making Medical Decision Making [facility] Narrative: Patient has resumed visit to [facility] with history of mosquito bites Anaplasmosis panel and Lyme was sent earlier today meanwhile will start patient on doxycycline CTA chest negative for PE or pneumonia 2 sets of cardiac enzymes negative for ACS Differential Diagnosis Differential Diagnoses: The differential diagnosis associated with the presentation includes Arthropod borne disease/viral disease/pneumonia/PE Lab Data [facility] Lab Attestation statement: I reviewed the patient's lab results. 05/24/23 14:34 05/24/23 14:34 Labs: Lab Results 05/24/23 05/24/23 05/25/23 Range/Units 14:34 17:48 00:50 WBC 9.7 (4.8-10.8) X10*3/uL RBC 4.96 (4.60-5.80) X10*6/uL Hgb 14.6 (14.0-18.0) g/dl Hct 45.0 (42.0-52.0) % MCV 90.7 (80.0-98.0) fL MCH 29.4 (27.0-33.0) pg MCHC 32.4 (31.0-36.0) g/dl RDW 11.7 (11.0-16.0) % Plt Count 303 (160-400) X10*3/uL MPV 8.8 L (9.4-12.4) fL Immature Gran % (Auto) 0.4 (0.0-0.4) % Neut % (Auto) 67.4 (45-73) % Lymph % (Auto) 22.1 (20-40) % [place] % (Auto) 8.7 (2-11) % Eos % (Auto) 1.0 (0-4) % Baso % (Auto) 0.4 (0-2) % Lymph # (Auto) 2.1 (1.2-4.9) X10*3/uL [place] # (Auto) 0.8 (0.1-1.2) X10*3/uL Eos # (Auto) 0.1 (0.0-0.4) X10*3/uL Baso # (Auto) 0.0 (0.0-0.2) X10*3/uL Abs Immat Gran (auto) 0.04 H (0.00-0.03) X10*3/uL Absolute Neuts (auto) 6.5 (2.0-8.3) x10*3/uL Absolute Nucleated RBC 0.000 (0.0-0.012) X10*3/uL Nucleated RBC % (auto) 0.0 (0.0-0.2) /100WBC Sodium 139 (135-145) mmol/L Potassium 4.7 (3.3-5.1) mmol/L Chloride 102 (96-108) mmol/L Carbon Dioxide 28 (22-29) mmol/L Anion Gap 14 (12-20) BUN 20 H (9-16) mg/dL Creatinine 0.84 (0.5-1.4) mg/dL Estim Creat Clear Calc 92.7 Estimated GFR > 60 Random Glucose 77 (60-115) mg/dL Calcium 10.1 (8.4-10.2) mg/dL Magnesium 2.4 (1.6-2.6) mg/dL Total Bilirubin 0.3 (0.0-1.0) mg/dL AST 16 (5-37) U/L ALT 24 (0-40) U/L Alkaline Phosphatase 112 (39-117) U/L Troponin I High Sens < 2.7 < 2.7 (<3.5-35.0) ng/L Total Protein 8.1 H (6.5-8.0) g/dL Albumin 4.4 (3.5-5.0) g/dL Lipase 16 (8-78) U/L Urine Color Yellow Urine Appearance Clear Urine pH 6.0 (5.0-9.0) Ur Specific [place] >= 1.030 H (1.005-1.025) Urine Protein Negative (Neg-Trace) mg/dL Urine Glucose (UA) Negative (Negative) mg/dL Urine Ketones Negative (Negative) mg/dL Urine Blood Negative (Negative) Urine Nitrite Negative (Negative) Ur Leukocyte Esterase Negative (Negative) Influenza Type A (PCR) NEGATIVE (Negative) Influenza Type B (PCR) NEGATIVE (Negative) RSV RNA Qual (PCR) NEGATIVE (Negative) SARS-CoV-2 RNA (RT-PCR) NEGATIVE (Negative) Independent Interpretation I performed an independent interpretation of an: EKG Interpretation: Normal sinus rhythm heart rate 83 beats per minute left axis deviation no acute ST-T changes no acute ischemia Critical Care Time Critical Care Time Critical Care Time: Yes Total Critical Care Time: 50 Attestation: The patient was critically ill with a high probability of imminent or life threatening deterioration. I spent greater than 55 ???minutes of discontinuous time evaluating the patient,delivering critical care at the bedside, discussing and evaluating pertinent data with consultants. Critical care time does not include time spent performing separately billable procedures or teaching. Total time spent performing critical care was 50???minutes. Discharge Plan Discharge Clinical Impression: Generalized body aches Patient Disposition: Home, Self-Care Instructions: Musculoskeletal Pain (ED) Additional Instructions: Possible you have mosquito borne disease, lab reports are pending Meanwhile start taking doxycycline 1 capsule 2 times a day for 10 days Drink plenty of fluids take ibuprofen/advil for fever or pain Prescriptions: New doxycycline hyclate 100 mg tablet 100 mg PO BID Qty: 20 0RF benzonatate 200 mg capsule 200 mg PO TID PRN (Reason: cough) Qty: 20 0RF No Action atorvastatin 20 mg tablet 20 mg PO BEDTIME Qty: 40 1RF Rx Instructions: 3 times a week coenzyme Q10 30 mg capsule 30 mg PO DAILY 90 Days Qty: 90 0RF ibuprofen 600 mg tablet 600 mg PO Q6H PRN (Reason: pain) Qty: 30 0RF cyclobenzaprine 10 mg tablet 10 mg PO BEDTIME Qty: 14 0RF prednisone 10 mg tablet 10 mg PO DAILY Qty: 7 0RF meloxicam 15 mg tablet 15 mg PO DAILY Qty: 14 0RF Interventions: ED Discharge Assessment Last Done: 05/25/23 01:19 Discharge Date/Time: 05/25/23 01:21 Print Language: Kiswahili
--- NOTE | 2023-05-24 14:04 | ECG_ITS ---
Test Reason : chest tightness Blood Pressure : / mmHG Vent. Rate : 083 BPM Atrial Rate : 083 BPM P-R Int : 148 ms QRS Dur : 068 ms QT Int : 364 ms P-R-T Axes : 027 -34 001 degrees QTc Int : 427 ms Normal sinus rhythm Left axis deviation Pulmonary disease pattern Abnormal ECG No previous ECGs available Referred By: Kaylee Metzger Electronically Signed By:Rigoberto Sylvester
[2023-05-24 14:40] LABS: MANUAL DIFF FLAG NO
[2023-05-24 14:44] LABS: Basophils Percent Auto 0.4 % (0-2); Eosinophils Absolute Auto 0.1 X10*3/uL (0.0-0.4); Hemoglobin 14.6 g/dl (14.0-18.0); Imm Gran Abs Auto 0.04 X10*3/uL (0.00-0.03); Imm Gran Pct Auto 0.4 % (0.0-0.4); Lymphocytes Absolute Auto 2.1 X10*3/uL (1.2-4.9); Lymphocytes Percent Auto 22.1 % (20-40); Mean Corpuscular HGB Conc 32.4 g/dl (31.0-36.0); Mean Corpuscular Hemoglobin 29.4 pg (27.0-33.0); Mean Corpuscular Volume 90.7 fL (80.0-98.0); Mean Platelet Volume 8.8 fL (9.4-12.4); Monocytes Absolute Auto 0.8 X10*3/uL (0.1-1.2); Monocytes Percent Auto 8.7 % (2-11); Neutrophils Absolute Auto 6.5 x10*3/uL (2.0-8.3); Neutrophils Percent Auto 67.4 % (45-73); Platelet Count 303 X10*3/uL (160-400); Red Blood Count 4.96 X10*6/uL (4.60-5.80); Red Cell Distribution Width 11.7 % (11.0-16.0); White Blood Count 9.7 X10*3/uL (4.8-10.8)
[2023-05-24 14:57] LABS: Alanine Aminotransferase 24 U/L (0-40); Albumin Level 4.4 g/dL (3.5-5.0); Alkaline Phosphatase 112 U/L (39-117); Anion Gap 14 (12-20); Aspartate Amino Transferase 16 U/L (5-37); Bilirubin Total 0.3 mg/dL (0.0-1.0); Blood Urea Nitrogen 20 mg/dL (9-16); Calcium 10.1 mg/dL (8.4-10.2); Carbon Dioxide 28 mmol/L (22-29); Chloride 102 mmol/L (96-108); Creatinine Clr Calc Pharmacy 92.7; Estimated Glomerular Filt Rate > 60; Glucose Random 77 mg/dL (60-115); Lipase 16 U/L (8-78); Magnesium 2.4 mg/dL (1.6-2.6); Potassium 4.7 mmol/L (3.3-5.1); Sodium 139 mmol/L (135-145); Total Protein 8.1 g/dL (6.5-8.0)
[2023-05-24 15:03] LABS: Troponin-I High Sensitivity < 2.7 ng/L (<3.5-35.0)
[2023-05-24 15:21] LABS: Influenza A PCR NEGATIVE (Negative); Influenza B PCR NEGATIVE (Negative); Resp Syncy Virus RNA Qual PCR NEGATIVE (Negative); SARS COV2 PCR INHOUSE NEGATIVE (Negative)
[2023-05-24 17:30] VITALS: BP 167/105; PULSE 84; RESP 16; TEMP 36.4; O2SAT 97
[2023-05-24 18:15] LABS: Troponin-I High Sensitivity < 2.7 ng/L (<3.5-35.0)
[2023-05-24] MEDS: Acetaminophen 325 MG TABLET 650 MG PO (21:59)
[2023-05-24] MEDS: iohexoL 350 MG/ML 100 ML INFUS..BTL 65 ML IV (22:41)
[2023-05-25 00:18] VITALS: BP 140/92; PULSE 80; RESP 18; TEMP 36.5; O2SAT 96
[2023-05-25] MEDS: Doxycycline Monohydrate 100 MG CAPSULE PO (00:51)
[2023-05-25 00:56] LABS: Appearance Urine Clear; Color Urine Yellow; Glucose Urine UA Negative (Negative); Leukocyte Esterase Urine Negative (Negative); Nitrite Urine Negative (Negative); Specific Gravity - Urine >= 1.030 (1.005-1.025); Urine Blood Negative (Negative); Urine Ketones Negative (Negative); Urine Protein Negative (Neg-Trace)
[2023-05-25 01:19] VITALS: BP 140/92; PULSE 80; RESP 18; TEMP 36.5; O2SAT 96
== END 2023-05-25 01:21 | disposition home or self-care (01) ==
PROVIDERS: Physician Assistant Medical; Emergency Provider Internal Medicine; PCP Nurse Practitioner Family
DX: M79.10 Myalgia, unspecified site (principal); R06.02 Shortness of breath; R07.89 Other chest pain; Z11.52 Encounter for screening for COVID-19; Z20.822 Contact with and (suspected) exposure to COVID-19; Z79.899 Other long term (current) drug therapy
CPT/HCPCS: 0241U; 36415; 71275; 80053; 81003; 83690; 83735; 84484; 85025; 93005; 99285; Q9967

== ENCOUNTER → 2023-05-24 14:04 | Outpatient (BNV) | payer OTHER, SELFPAY | PROVIDERS: Emergency Provider Internal Medicine; PCP Nurse Practitioner Family; Visit Provider Internal Medicine Cardiovascular Disease | DX: R07.89 Other chest pain (principal); R94.31 Abnormal electrocardiogram [ECG] [EKG] | CPT/HCPCS: 93010 ==

== ENCOUNTER 2023-06-06 09:02 | Outpatient (AMB) | payer OTHER, SELFPAY ==
[2023-06-06 09:09] VITALS: BP 132/86; PULSE 78; O2SAT 98; BMI 25.1
--- NOTE | 2023-06-06 09:09 | A.OFFPC_ITS ---
Vital Signs 06/06/23 09:09 Height 5 ft 8 in Weight 165 lb BMI 25.1 BP 132/86 Blood Pressure Location Lt brachial Position Sitting Pulse 78 Pulse Source Pulse Oximeter Pulse Oximetry (%) 98 Oxygen Delivery Method Room Air Intake Visit Reasons: Physical Intake Note: pt is here for physical exam, patient had last colonscopy 2017( epeat 10 years) Allergies rosuvastatin [Crestor] Adverse Reaction (Unknown, Verified 06/06/23 09:12) muscle cramping Medication List - Last Reconciled 06/06/23 by KRISTI Palomares atorvastatin 20 mg PO BEDTIME coenzyme Q10 30 mg PO DAILY 90 days ibuprofen 600 mg PO Q6H PRN Tobacco use date assessed: 06/06/23 Dental Screening Dental Screen Date: 06/06/23 Did you have a dental visit in the last 12 months?: Yes Did you have a dental problem in the last 6 months where you did not have access to dental care?: No Was dental information given to patient?: Patient has dentist HPI Physical HPI Details Pt is here for a PE. Will order labs. Colon screen is up to date. Due for PSA in the near future, will order. Denies dribbling with urination, weak stream, and frequent nocturia. Pt has a family hx of pancreatic cancer (grandmother). Will order MRI of abdomen and CA 19-9. Pt reports that his diastolic blood pressure is intermittently elevated. Will start hydrochlorothiazide 12.5mg. Denies chest pain, shortness of breath, headache, dizziness, and blurred vision. PFSH Medical History Elevated cholesterol HTN (hypertension) Family history of pancreatic cancer Left inguinal hernia Surgical History History of right inguinal hernia repair Hx of colonoscopy Family History Maternal Aunt No problems noted. Father Substance use disorder Mother Substance use disorder Mental health disorder Maternal Grandfather Substance use disorder Maternal Grandmother Substance use disorder Paternal Grandfather Substance use disorder Paternal Uncle Substance use disorder Maternal Aunt Substance use disorder Paternal Aunt Substance use disorder Maternal Uncle Substance use disorder Family/Other Mental health disorder Social History Housing: House Patient Tobacco Use Status: Former Tobacco user Years Smoked: 40 years ago e-Cigarette/Vaping Use: Never Used Second Hand Smoke Exposure: No service: No Current occupational status: employed 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 1. Little interest or pleasure in doing things: not at all 2. Feeling down, depressed, or hopeless: not at all 3. Trouble falling or staying asleep, or sleeping too much: more than half the days 4. Feeling tired or having little energy: several days 5. Poor appetite or overeating: not at all 6. Feeling bad about yourself - or that you are a failure or have let yourself or your family down: not at all 7. Trouble concentrating on things, such as reading the newspaper or watching television: not at all 8. Moving or speaking so slowly that other people could have noticed. Or the opposite - being so fidgety or restless that you have been moving around a lot more than usual: not at all 9. Thoughts that you would be better off or of hurting yourself in some way: not at all Total score: 3 Depression Screening Interpretation: Negative Depression Screening Done: Yes 01550 - PHQ-9 Billing: Yes Source: Developed by Drs. Atilio Tejada, Karma Garay, Ravi Luis and colleagues, with an educational mik from [employer]. Thrive Questionnaire Date Thrive assessed: 06/06/23 I am a: Patient What is your living situation today?: I have a steady place to live Within the past 12 months, did the food you bought not last and you didn't have the money to get more?: Never true Within the past 12 months, did you worry whether your food would run out before you got money to buy more?: Never true Do you have trouble paying for medicines?: No Do you have trouble getting transportation to medical appointments?: No Do you have trouble paying your heating and electricity bill?: No Do you have trouble taking care of your child, family member or friend?: No Do you have trouble with day-to-day activities such as bathing, preparing meals, shopping, managing finances, etc.?: No Are you currently unemployed and looking for a job?: No Are you interested in more education?: No Please select the resources that you would like help with: None Currently or been in a relationship where the following occur: no concerns reported THRIVE Score: 0 AUDIT C Alcohol Use Questionnaire (AUDIT-C) 1. How often do you have a drink containing alcohol?: 4 or more times a week 2. How many drinks containing alcohol do you have on a typical day when you are drinking?: 1 or 2 3. How often do you have six or more drinks on one occasion?: Less than monthly Total Score: 5 Score Reviewed/Action Taken: Yes DANIELLE-7 AMB Questionnaire DANIELLE-7 Date DANIELLE - 7 assessed: 06/06/23 Feeling nervous, anxious, or on edge: 1 = Several days Not being able to stop or control worryin = Several days Worrying too much about different things: 1 = Several days Trouble relaxin = Nearly every day Becoming easily annoyed or irritable: 1 = Several days Feeling afraid as if something awful might happen: 1 = Several days Source: Developed by Drs. Atilio Tejada, Karma Garay, Ravi Luis and colleagues, with an educational mik from [employer]. DANIELLE-7 Assessment Billing DANIELLE-7 Assessment Tool: DANIELLE-7 Assessment 35410 Review of Systems Const Denies chills and Denies fever(s) Eyes Denies blurry vision ENT Denies vertigo, Denies dizziness and Denies sore throat Card Denies chest pain at rest, Denies chest pain with activity, Denies diaphoresis, Denies dyspnea and Denies dyspnea on exertion Resp Denies cough, Denies dyspnea, Denies dyspnea on exertion and Denies wheezing GI Denies abdominal pain, Denies melena, Denies hematochezia, Denies constipation, Denies diarrhea and Denies loose stools Denies hematuria Musc Denies numbness and Denies tingling Skin/Breast Denies lesions Neuro Denies vertigo, Denies dizziness, Denies numbness and Denies tingling Psych Denies anxiety, Denies depression, Denies homicidal ideation, Denies suicidal ideation and Denies other (substance abuse) Aller/Immun Denies wheezing Physical exam (Primary Care) Vital Signs: Last Vital Signs Pulse 78 06/06/23 09:09 BP 132/86 06/06/23 09:09 Pulse Ox 98 06/06/23 09:09 Oxygen Delivery Method Room Air 06/06/23 09:09 BMI result Body Mass Index 25.1 Tobacco/Smoking Status: Tobacco use Status Tobacco use date assessed 06/06/23 06/06/23 09:16 Patient Tobacco Use Status Former Tobacco user 06/06/23 09:11 e-Cigarette/Vaping Use Never Used 06/06/23 09:11 PHQ-9: PHQ-9 Score PHQ-9: Total score 3 06/06/23 09:18 Depression Screening Interpretation: Negative Thrive Assessment: Date of Thrive Assessment Date Thrive assessed 06/06/23 06/06/23 09:16 Currently or been in a relationship where the following occur: no concerns reported Const General: cooperative Nutritional Appearance: well nourished Orientation/consciousness: patient oriented x3 HENMT Head: Yes normal to inspection, Yes normocephalic and Yes atraumatic Ears: TM's normal bilaterally Eyes General: appearance normal, both eyes and all related structures Alignment and Position: alignment normal and position normal Neck Neck: Yes normal visual inspection and Yes no lymphadenopathy Thyroid: Thyroid normal Resp Effort & Inspection: normal respiratory effort Auscultation: clear to auscultation bilaterally Cardio Rate: regular rate Rhythm: regular rhythm Heart sounds: S1 normal heart sound present, S2 normal heart sound present and no murmurs GI Palpation (GI): Soft to palpation and nontender Auscultation: normal bowel sounds Male General Exam: Yes normal external exam Penis: normal penis Scrotum: scrotum normal, testes descended bilaterally and no inguinal hernias Testes: no testicular mass Skin Rashes: no rashes Neuro General: patient oriented x3, moves all extremities, no focal motor deficits and deep tendon reflexes 2+ bilaterally Romberg Test: Negative Psych Appearance: grossly normal Mental Status: mental status grossly normal Speech and movement: Normal speech and movement present Affect: normal affect Attitude: cooperative Thought process: Normal thought process present Thought content: Normal thought content present Insight: Good insight present (Psych) Judgement: Good judgement present (Psych) Assessment and Plan Assessment & Plan (1) Physical exam: Code(s): Z00.00 - Encounter for general adult medical examination without abnormal findings Plan: Labs ordered (2) Screening PSA (prostate specific antigen): Code(s): Z12.5 - Encounter for screening for malignant neoplasm of prostate Plan: PSA ordered (3) Family history of pancreatic cancer: Code(s): Z80.0 - Family history of malignant neoplasm of digestive organs Plan: MRI and CA19-9 ordered Plan The patient agreed to the use of a medical office administrator for this encounter. Scribed for ДМИТРИЙ [employer]ro[employer] by Erum Herrmann medical office administrator, on 06/06/2023 at 09:20 EST. Orders: Orders Complete Blood Count Auto Diff Today Z00.00 - Encounter for general adult medical examination without abnormal findings Lipid Panel Today Z00.00 - Encounter for general adult medical examination without abnormal findings Vitamin D 25-OH Total Today Z00.00 - Encounter for general adult medical examination without abnormal findings Prostate Specific Antigen Scr Today Z12.5 - Encounter for screening for malignant neoplasm of prostate MR abdomen wo/w con Today Z80.0 - Family history of malignant neoplasm of digestive organs Comprehensive [place]. Panel Fast Today Z00.00 - Encounter for general adult medical examination without abnormal findings TSH reflex Free T4 Today Z00.00 - Encounter for general adult medical examination without abnormal findings UA CC w/rflx Micro + Cult Today Z00.00 - Encounter for general adult medical examination without abnormal findings Carbohydrate Antigen 19-9 Today Z80.0 - Family history of malignant neoplasm of digestive organs Medications: New hydrochlorothiazide 12.5 mg PO DAILY 90 tabs 0RF Coding Level of Care Code Est Pt Prev Care 40-64y(07838) Diagnoses Physical exam Z00.00 Screening PSA (prostate specific antigen) Z12.5 Family history of pancreatic cancer Z80.0 Additional Codes DANIELLE-7 Assessment Billing - DANIELLE-7 Assessment Tool: DANIELLE-7 Assessment 01764 ([id number])
== END 2023-06-06 09:36 | disposition home or self-care (01) ==
PROVIDERS: PCP Nurse Practitioner Family; Visit Provider Nurse Practitioner Family
DX: Z00.00 Encounter for general adult medical examination without abnormal findings (principal); Z12.5 Encounter for screening for malignant neoplasm of prostate; Z80.0 Family history of malignant neoplasm of digestive organs
CPT/HCPCS: 99396

== ENCOUNTER 2023-07-14 07:55 | Outpatient (REF) | payer OTHER, SELFPAY ==
--- NOTE | ~2023-07-14 | MR_ITS ---
EXAMINATION: MR ABDOMEN WITHOUT AND WITH CONTRAST CLINICAL INFORMATION: Family history of malignant neoplasm of the digestive organs. COMPARISON: Previous abdominal ultrasound from 2018 and CTA of the chest May 2023. TECHNIQUE: MR abdomen was performed without and with use of 7.5 mL intravenous Gadavist contrast. Postcontrast images are performed in multiphase dynamic sequences. Imaging was performed in 3 planes. FINDINGS: LUNG BASES: The visualized lung bases are unremarkable. LIVER, GALLBLADDER, AND BILIARY TREE: The liver is slightly enlarged. Liver loses signal on out of phase sequences suggestive of fatty infiltration with areas of focal fatty sparing. The liver is normal in contour. No focal liver lesion or biliary duct dilatation. The gallbladder is normal. There are no gallstones. Intra and extrahepatic bile ducts are normal in caliber. No filling defect in the common bile duct is seen. PANCREAS: There is a fatty area in the neck of the pancreas measuring approximately 1 cm either representing focal fatty infiltration or small lipoma. The pancreas is otherwise normal. The main pancreatic duct does not appear dilated. SPLEEN: Normal. ADRENAL GLANDS: Normal. KIDNEYS AND URETERS: The kidneys are normal in size, shape, and enhance symmetrically. No hydronephrosis. No perinephric stranding. GASTROINTESTINAL TRACT: No bowel obstruction. No ascites or fluid collection. ABDOMINAL WALL: No significant hernia is appreciated. LYMPH NODES: No lymphadenopathy. VASCULAR: Unremarkable. OSSEOUS STRUCTURES: Mild degenerative disc disease in the lower lumbar spine. MR/MR abdomen wo/w con IMPRESSION: Enlarged fatty liver. Fatty area in the neck of the pancreas either representing focal fatty infiltration or small lipoma.
[2023-07-14] MEDS: gadobutroL 7.5 ML VIAL IVPUSH (08:43)
== END 2023-07-14 07:56 | disposition home or self-care (01) ==
LOC: HO.MRI 07:55
PROVIDERS: PCP Nurse Practitioner Family; Visit Provider Nurse Practitioner Family
DX: K76.0 Fatty (change of) liver, not elsewhere classified (principal); Z80.0 Family history of malignant neoplasm of digestive organs
CPT/HCPCS: 74183; A9585

== ENCOUNTER 2023-09-08 08:14 | Outpatient (REF) | payer OTHER, SELFPAY ==
[2023-09-08 10:21] LABS: Appearance Urine Clear; Color Urine Yellow; Glucose Urine UA Negative (Negative); Leukocyte Esterase Urine Negative (Negative); Nitrite Urine Negative (Negative); PH 6.5 (5.0-9.0); Specific Gravity - Urine 1.015 (1.005-1.025); Urine Blood Negative (Negative); Urine Ketones Negative (Negative); Urine Protein Negative (Neg-Trace)
[2023-09-08 10:27] LABS: MANUAL DIFF FLAG NO
[2023-09-08 10:38] LABS: Basophils Percent Auto 0.6 % (0-2); Eosinophils Absolute Auto 0.1 X10*3/uL (0.0-0.4); Hematocrit 45.3 % (42.0-52.0); Hemoglobin 15.2 g/dl (14.0-18.0); Imm Gran Abs Auto 0.03 X10*3/uL (0.00-0.03); Imm Gran Pct Auto 0.4 % (0.0-0.4); Lymphocytes Absolute Auto 2.3 X10*3/uL (1.2-4.9); Lymphocytes Percent Auto 33.5 % (20-40); Mean Corpuscular HGB Conc 33.6 g/dl (31.0-36.0); Mean Corpuscular Hemoglobin 30.1 pg (27.0-33.0); Mean Corpuscular Volume 89.7 fL (80.0-98.0); Mean Platelet Volume 9.8 fL (9.4-12.4); Monocytes Absolute Auto 0.7 X10*3/uL (0.1-1.2); Monocytes Percent Auto 10.6 % (2-11); Neutrophils Absolute Auto 3.7 x10*3/uL (2.0-8.3); Neutrophils Percent Auto 52.9 % (45-73); Platelet Count 223 X10*3/uL (160-400); Red Blood Count 5.05 X10*6/uL (4.60-5.80); Red Cell Distribution Width 12.5 % (11.0-16.0)
[2023-09-08 11:16] LABS: Alanine Aminotransferase 30 U/L (0-40); Albumin Level 4.6 g/dL (3.5-5.0); Alkaline Phosphatase 74 U/L (39-117); Anion Gap 15 (12-20); Aspartate Amino Transferase 23 U/L (5-37); Bilirubin Total 0.5 mg/dL (0.0-1.0); Blood Urea Nitrogen 19 mg/dL (9-16); Calcium 9.5 mg/dL (8.4-10.2); Carbon Dioxide 25 mmol/L (22-29); Chloride 102 mmol/L (96-108); Cholesterol 187 mg/dL (<200); Estimated Glomerular Filt Rate > 60; Glucose Fasting 84 mg/dL (60-99); HDL Cholesterol 55 mg/dL (>40); LDL Cholesterol Calculated 110 mg/dL (<100); Potassium 4.1 mmol/L (3.3-5.1); Sodium 138 mmol/L (135-145); Total Protein 7.7 g/dL (6.5-8.0); Triglycerides 111 mg/dL (<150); Vitamin D 25-OH Total 52.8 ng/mL (>30)
[2023-09-08 11:22] LABS: Prostate Specific Antigen Scr 0.56 ng/mL (<0.05-4.0)
[2023-09-13 09:02] LABS: Carbohydrate Antigen 19-9 3 U/mL (<34)
== END 2023-09-08 08:15 | disposition home or self-care (01) ==
LOC: HO.HMGCLDS 08:14
PROVIDERS: PCP Nurse Practitioner Family; Visit Provider Nurse Practitioner Family
DX: Z00.00 Encounter for general adult medical examination without abnormal findings (principal); Z80.0 Family history of malignant neoplasm of digestive organs; Z12.5 Encounter for screening for malignant neoplasm of prostate; Z13.89 Encounter for screening for other disorder
CPT/HCPCS: 36415; 80053; 80061; 81003; 82306; 84153; 84443; 85025; 86301

== ENCOUNTER 2023-12-06 08:04 | Outpatient (AMB) | payer OTHER, SELFPAY ==
[2023-12-06 08:06] VITALS: BP 142/90; PULSE 74; O2SAT 99; BMI 25.8
--- NOTE | 2023-12-06 08:06 | A.OFFPC_ITS ---
Vital Signs 12/06/23 08:06 Height 5 ft 8 in Weight 170 lb BMI 25.8 Intake Visit Reasons: 6 month follow up Allergies rosuvastatin [Crestor] Adverse Reaction (Unknown, Verified 12/06/23 08:07) muscle cramping Tobacco use date assessed: 12/06/23 Dental Screening Dental Screen Date: 12/06/23 Did you have a dental visit in the last 12 months?: Yes Did you have a dental problem in the last 6 months where you did not have access to dental care?: No Was dental information given to patient?: Patient has dentist [facility] Medical History Elevated cholesterol HTN (hypertension) Family history of pancreatic cancer Left inguinal hernia Surgical History History of right inguinal hernia repair Hx of colonoscopy Family History Maternal Aunt No problems noted. Father Substance use disorder Mother Substance use disorder Mental health disorder Maternal Grandfather Substance use disorder Maternal Grandmother Substance use disorder Paternal Grandfather Substance use disorder Paternal Uncle Substance use disorder Maternal Aunt Substance use disorder Paternal Aunt Substance use disorder Maternal Uncle Substance use disorder Family/Other Mental health disorder Social History Housing: House Patient Tobacco Use Status: Former Tobacco user Years Smoked: 40 years ago e-Cigarette/Vaping Use: Never Used Second Hand Smoke Exposure: No service: No Current occupational status: employed 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 Current occupational exposures/hazards: No Cognitive needs: No Hearing needs: No Vision needs: No Questionnaire Thrive Questionnaire Date Thrive assessed: 06/06/23 I am a: Patient What is your living situation today?: I have a steady place to live Within the past 12 months, did the food you bought not last and you didn't have the money to get more?: Never true Within the past 12 months, did you worry whether your food would run out before you got money to buy more?: Never true Do you have trouble paying for medicines?: No Do you have trouble getting transportation to medical appointments?: No Do you have trouble paying your heating and electricity bill?: No Do you have trouble taking care of your child, family member or friend?: No Do you have trouble with day-to-day activities such as bathing, preparing meals, shopping, managing finances, etc.?: No Are you currently unemployed and looking for a job?: No Are you interested in more education?: No Please select the resources that you would like help with: None Currently or been in a relationship where the following occur: No concerns reported THRIVE Score: 0 AUDIT C Alcohol Use Questionnaire (AUDIT-C) 1. How often do you have a drink containing alcohol?: 4 or more times a week 2. How many drinks containing alcohol do you have on a typical day when you are drinking?: 1 or 2 3. How often do you have six or more drinks on one occasion?: Less than monthly Total Score: 5 DANIELLE-7 AMB Questionnaire DANIELLE-7 Date DANIELLE - 7 assessed: 06/06/23 Feeling nervous, anxious, or on edge: 0 = Not at all Not being able to stop or control worryin = Not at all Worrying too much about different things: 0 = Not at all Trouble relaxin = Nearly every day Being so restless that it is hard to sit still: 0 = Not at all Becoming easily annoyed or irritable: 0 = Not at all Feeling afraid as if something awful might happen: 0 = Not at all Total DANIELLE-7 score (0-4 normal; 5-9 mild; 10-14 moderate; 15-21 severe): 3 Source: Developed by Drs. Atiilo Tejada, Karma Garay, Ravi Luis and colleagues, with an educational mik from [employer]. Physical exam (Primary Care) Tobacco/Smoking Status: Tobacco use Status Tobacco use date assessed 06/06/23 06/06/23 09:16 Patient Tobacco Use Status Former Tobacco user 06/06/23 09:11 e-Cigarette/Vaping Use Never Used 06/06/23 09:11 Thrive Assessment: Date of Thrive Assessment Date Thrive assessed 06/06/23 06/06/23 09:16 Currently or been in a relationship where the following occur: No concerns reported Coding
--- NOTE | 2023-12-06 08:09 | A.OFFPC_ITS ---
Vital Signs 12/06/23 08:06 12/06/23 08:35 Height 5 ft 8 in Weight 170 lb BMI 25.8 BP 142/90 H 152/90 H Blood Pressure Location Lt brachial Rt brachial Position Sitting Sitting Pulse 74 Pulse Source Pulse Oximeter Pulse Oximetry (%) 99 Oxygen Delivery Method Room Air Intake Visit Reasons: 6 month follow up Intake Note: Pt is here today for his 6 mo. f/u Allergies rosuvastatin [Crestor] Adverse Reaction (Unknown, Verified 12/06/23 09:15) muscle cramping Medication List - Last Reconciled 12/06/23 by KRISTI Palomares atorvastatin 20 mg PO BEDTIME coenzyme Q10 30 mg PO DAILY 90 days hydrochlorothiazide 12.5 mg PO DAILY Tobacco use date assessed: 12/06/23 Dental Screening Dental Screen Date: 12/06/23 Did you have a dental visit in the last 12 months?: Yes Did you have a dental problem in the last 6 months where you did not have access to dental care?: No Was dental information given to patient?: Patient has dentist HPI 6 month follow up HPI Details HTN: Blood pressure is managed with hydrochlorothiazide 12.5mg. BP is elevated today. Will have pt monitor his blood pressure at home and send read ings via portal. Denies chest pain, shortness of breath, headache, dizziness, and blurred vision. Pt reports that his grandmother had pancreatic cancer. He had an MRI which showed enlarged fatty liver. Fatty area in the neck of the pancreas either representing focal fatty infiltration or small lipoma. Pt will be seeing GI, encouraged pt to show his MRI to this provider for future plans on monitoring. [facility] Medical History Elevated cholesterol HTN (hypertension) Family history of pancreatic cancer Left inguinal hernia Surgical History History of right inguinal hernia repair Hx of colonoscopy Family History Maternal Aunt No problems noted. Father Substance use disorder Mother Substance use disorder Mental health disorder Maternal Grandfather Substance use disorder Maternal Grandmother Substance use disorder Paternal Grandfather Substance use disorder Paternal Uncle Substance use disorder Maternal Aunt Substance use disorder Paternal Aunt Substance use disorder Maternal Uncle Substance use disorder Family/Other Mental health disorder Social History Housing: House Patient Tobacco Use Status: Former Tobacco user Years Smoked: 40 years ago e-Cigarette/Vaping Use: Never Used Second Hand Smoke Exposure: No service: No Current occupational status: employed 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 Current occupational exposures/hazards: No Cognitive needs: No Hearing needs: No Vision needs: No Questionnaire Thrive Questionnaire Date Thrive assessed: 06/06/23 I am a: Patient What is your living situation today?: I have a steady place to live Within the past 12 months, did the food you bought not last and you didn't have the money to get more?: Never true Within the past 12 months, did you worry whether your food would run out before you got money to buy more?: Never true Do you have trouble paying for medicines?: No Do you have trouble getting transportation to medical appointments?: No Do you have trouble paying your heating and electricity bill?: No Do you have trouble taking care of your child, family member or friend?: No Do you have trouble with day-to-day activities such as bathing, preparing meals, shopping, managing finances, etc.?: No Are you currently unemployed and looking for a job?: No Are you interested in more education?: No Please select the resources that you would like help with: None Currently or been in a relationship where the following occur: No concerns reported THRIVE Score: 0 AUDIT C Alcohol Use Questionnaire (AUDIT-C) 1. How often do you have a drink containing alcohol?: 4 or more times a week 2. How many drinks containing alcohol do you have on a typical day when you are drinking?: 1 or 2 3. How often do you have six or more drinks on one occasion?: Less than monthly Total Score: 5 DANIELLE-7 AMB Questionnaire DANIELLE-7 Date DANIELLE - 7 assessed: 06/06/23 Feeling nervous, anxious, or on edge: 0 = Not at all Not being able to stop or control worryin = Not at all Worrying too much about different things: 0 = Not at all Trouble relaxin = Nearly every day Being so restless that it is hard to sit still: 0 = Not at all Becoming easily annoyed or irritable: 0 = Not at all Feeling afraid as if something awful might happen: 0 = Not at all Total DANIELLE-7 score (0-4 normal; 5-9 mild; 10-14 moderate; 15-21 severe): 3 Source: Developed by Drs. Atilio Tejada, Karma Garay, Ravi Luis and colleagues, with an educational mik from [employer]. Review of Systems Const Reports as per HPI Physical exam (Primary Care) Vital Signs: Last Vital Signs Pulse 74 12/06/23 08:06 BP 152/90 H 12/06/23 08:35 Pulse Ox 99 12/06/23 08:06 Oxygen Delivery Method Room Air 12/06/23 08:06 BMI result Body Mass Index 25.8 Tobacco/Smoking Status: Tobacco use Status Tobacco use date assessed 12/06/23 12/06/23 08:10 Patient Tobacco Use Status Former Tobacco user 12/06/23 08:10 e-Cigarette/Vaping Use Never Used 12/06/23 08:10 Thrive Assessment: Date of Thrive Assessment Date Thrive assessed 06/06/23 12/06/23 08:10 Currently or been in a relationship where the following occur: No concerns reported Const General: cooperative Orientation/consciousness: patient oriented x3 Resp Effort & Inspection: normal respiratory effort Auscultation: clear to auscultation bilaterally Cardio Rate: regular rate Rhythm: regular rhythm Heart sounds: S1 normal heart sound present and S2 normal heart sound present GI Palpation (GI): Soft to palpation, not firm, nontender and no guarding Percussion: Yes normal to percussion Neuro General: patient oriented x3 Extrem Right lower extremity: no edema Left lower extremity: no edema Psych Appearance: grossly normal Mental Status: mental status grossly normal Speech and movement: Normal speech and movement present Affect: normal affect Attitude: cooperative Thought process: Normal thought process present Thought content: Normal thought content present Insight: Good insight present (Psych) Judgement: Good judgement present (Psych) Coding Level of Care Code Est Pt Level 3 (54826) Diagnoses Family history of pancreatic cancer Z80.0 HTN (hypertension) I10 Assessment & Plan Assessment & Plan (1) Family history of pancreatic cancer: Code(s): Z80.0 - Family history of malignant neoplasm of digestive organs Category: Medical Plan: imaging performed, pt will follow up with his GI. (2) HTN (hypertension): Code(s): I10 - Essential (primary) hypertension Category: Medical Plan: take BPs at home, send me values via portal Plan The patient agreed to the use of a biomedical equipment specialist for this encounter. Scribed for Benjamin Carey, [employer]- by Erum Herrmann, biomedical equipment specialist, on 12/06/2023 at 08:20 EST. Orders: Orders Comprehensive [place]. Panel Fast Today I10 - Essential (primary) hypertension, Z80.0 - Family history of malignant neoplasm of digestive organs UA CC w/rflx Micro + Cult Today I10 - Essential (primary) hypertension, Z80.0 - Family history of malignant neoplasm of digestive organs Lipid Panel Today I10 - Essential (primary) hypertension, Z80.0 - Family history of malignant neoplasm of digestive organs Complete Blood Count Auto Diff Today I10 - Essential (primary) hypertension, Z80.0 - Family history of malignant neoplasm of digestive organs TSH reflex Free T4 Today I10 - Essential (primary) hypertension, Z80.0 - Family history of malignant neoplasm of digestive organs
[2023-12-06 08:35] VITALS: BP 152/90
== END 2023-12-06 11:31 | disposition home or self-care (01) ==
PROVIDERS: PCP Nurse Practitioner Family; Visit Provider Nurse Practitioner Family
DX: Z80.0 Family history of malignant neoplasm of digestive organs (principal); I10 Essential (primary) hypertension

== ENCOUNTER → 2023-12-06 08:04 | Outpatient (BNVA) | payer OTHER, SELFPAY | PROVIDERS: PCP Nurse Practitioner Family; Visit Provider Nurse Practitioner Family ==

== ENCOUNTER 2023-12-06 08:46 | Outpatient (REF) | payer OTHER, SELFPAY ==
[2023-12-06 10:08] LABS: MANUAL DIFF FLAG NO
[2023-12-06 10:10] LABS: Appearance Urine Clear; Color Urine Yellow; Glucose Urine UA Negative (Negative); Leukocyte Esterase Urine Negative (Negative); Nitrite Urine Negative (Negative); Specific Gravity - Urine 1.015 (1.005-1.025); Urine Blood Negative (Negative); Urine Ketones Negative (Negative); Urine Protein Negative (Neg-Trace)
[2023-12-06 10:15] LABS: Basophils Percent Auto 0.5 % (0-2); Eosinophils Absolute Auto 0.1 X10*3/uL (0.0-0.4); Eosinophils Percent Auto 1.7 % (0-4); Hemoglobin 14.8 g/dl (14.0-18.0); Imm Gran Abs Auto 0.03 X10*3/uL (0.00-0.03); Imm Gran Pct Auto 0.5 % (0.0-0.4); Lymphocytes Absolute Auto 1.9 X10*3/uL (1.2-4.9); Lymphocytes Percent Auto 29.8 % (20-40); Mean Corpuscular HGB Conc 33.6 g/dl (31.0-36.0); Mean Corpuscular Hemoglobin 30.4 pg (27.0-33.0); Mean Corpuscular Volume 90.3 fL (80.0-98.0); Mean Platelet Volume 9.6 fL (9.4-12.4); Monocytes Absolute Auto 0.6 X10*3/uL (0.1-1.2); Monocytes Percent Auto 9.4 % (2-11); Neutrophils Absolute Auto 3.8 x10*3/uL (2.0-8.3); Neutrophils Percent Auto 58.1 % (45-73); Platelet Count 241 X10*3/uL (160-400); Red Blood Count 4.87 X10*6/uL (4.60-5.80); Red Cell Distribution Width 12.2 % (11.0-16.0); White Blood Count 6.5 X10*3/uL (4.8-10.8)
[2023-12-06 12:02] LABS: Alanine Aminotransferase 50 U/L (0-40); Albumin Level 4.5 g/dL (3.5-5.0); Alkaline Phosphatase 77 U/L (39-117); Anion Gap 14 (12-20); Aspartate Amino Transferase 39 U/L (5-37); Bilirubin Total 0.4 mg/dL (0.0-1.0); Blood Urea Nitrogen 17 mg/dL (9-16); Calcium 10.1 mg/dL (8.4-10.2); Carbon Dioxide 26 mmol/L (22-29); Chloride 104 mmol/L (96-108); Cholesterol 179 mg/dL (<200); Estimated Glomerular Filt Rate > 60; Glucose Fasting 100 mg/dL (60-99); HDL Cholesterol 56 mg/dL (>40); LDL Cholesterol Calculated 104 mg/dL (<100); Potassium 4.1 mmol/L (3.3-5.1); Sodium 140 mmol/L (135-145); Total Protein 7.6 g/dL (6.5-8.0); Triglycerides 99 mg/dL (<150)
[2023-12-06 12:20] LABS: TSH reflex Free T4 1.65 uIU/mL (0.32-4.0)
== END 2023-12-06 08:47 | disposition home or self-care (01) ==
LOC: HO.HMGCLDS 08:46
PROVIDERS: PCP Nurse Practitioner Family; Visit Provider Nurse Practitioner Family
DX: I10 Essential (primary) hypertension (principal); Z80.0 Family history of malignant neoplasm of digestive organs
CPT/HCPCS: 36415; 80053; 80061; 81003; 84443; 85025

== ENCOUNTER 2023-12-12 09:33 | Outpatient (REF) | payer OTHER, SELFPAY ==
--- NOTE | ~2023-12-12 | US_ITS ---
EXAMINATION: US COMPLETE ABDOMEN WITH LIVER ELASTOGRAPHY CLINICAL INFORMATION: Elevated liver function tests. COMPARISON: MRI abdomen dated 08/09/2023. TECHNIQUE: Real-time imaging of the abdominal viscera. Noninvasive ultrasound liver fibrosis assessment is performed using German ElastPQ point quantification shear wave elastography (pSWE) with a C5-2 MHz transducer. Multiple elastography samples are obtained. FINDINGS: PANCREAS: There is mild fatty infiltration. The visualized pancreatic head and body are otherwise normal in appearance. The remainder of the pancreas is obscured from visualization by the overlying bowel gas. ABDOMINAL AORTA: The proximal and distal aortic segments are normal in caliber. The mid segment is obscured by overlapping bowel gas. INFERIOR VENA CAVA: Visualized portions are normal. LIVER: Normal. The liver demonstrates normal size, contour and echogenicity. No focal lesion or intrahepatic biliary duct dilatation. The right lobe measures 16.2 cm in length. The left lobe measures 10.7 cm in length. Portal flow is towards the liver (hepatopetal). Shear wave liver elastography median stiffness is 1.70 m/s (reference: normal median stiffness is 1.3 m/s or less). IQR/median stiffness to assess sampling precision is 0.14 (reference: good quality data set is IQR/median stiffness of 0.15 or less). GALLBLADDER: Normal. The gallbladder is physiologically distended without evidence of stones, sludge, polyps, wall thickening or pericholecystic fluid. COMMON BILE DUCT: Normal in caliber measuring 0.7 cm in diameter. RIGHT KIDNEY: Normal. No hydronephrosis. No renal calculi or focal parenchymal lesions. The kidney measures 10.9 cm in maximum dimension. LEFT KIDNEY: Normal. No hydronephrosis. No renal calculi or focal parenchymal lesions. The kidney measures 10.8 cm in maximum dimension. SPLEEN: Normal. The spleen measures 11.1 cm in maximum dimension. FREE FLUID: None. US/US abdomen comp w elastography IMPRESSION: 1. There is generalized increase in hepatic echotexture, consistent with fatty infiltration or hepatocellular disease. Please correlate clinically. No focal hepatic mass or intrahepatic biliary dilatation is seen. 2. Liver elastography: Measurements are suggestive of compensated advanced chroniic liver disease but need further test for confirmation. 3. Technically limited ultrasound examination of the abdominal great vessels. REFERENCE: Society of Radiologists in Ultrasound Liver Stiffness Thresholds (2020): LIVER STIFFNESS THRESHOLDS: *Liver Stiffness equal or less than 1.3 m/s: High probability of being normal. *Liver Stiffness less than 1.7 m/s: In the absence of other known clinical signs, rules out compensated advanced chronic liver disease. *Liver Stiffness 1.7-2.1 m/s: Suggestive of compensated advanced chronic liver disease but need further test for confirmation. *Liver Stiffness over 2.1 m/s: Rules in compensated advanced chronic liver disease. *Liver Stiffness over 2.4 m/s: Suggestive of clinically significant portal hypertension. QUALITY OF DATA SET: *IQR/Median value equal or less than 0.15 implies a quality data set. *IQR/Median value over 0.15 implies a poor quality data set. SIGNIFICANT CHANGE FROM PRIOR EXAM: Significant change if liver stiffness measurement is 10% or greater from prior exam. OTHER CONSIDERATIONS: The stage of liver fibrosis may be overestimated in the setting of acute hepatitis, liver inflammation, elevated liver function tests, hepatic vascular congestion, obstructive cholestasis, non-fasting state, and infiltrative diseases such as amyloidosis and lymphoma. In some patients with NAFLD, the liver stiffness thresholds for compensated advanced chronic liver disease may be lower. In causes other than viral hepatitis and NAFLD, liver stiffness thresholds are not well established. Electronically signed by: Benjamin Trevino MD 01/06/2024 01:11 PM [facility] [place]
== END 2023-12-12 09:34 | disposition home or self-care (01) ==
LOC: HO.US 09:33
PROVIDERS: PCP Nurse Practitioner Family; Visit Provider Nurse Practitioner Family
DX: R94.8 Abnormal results of function studies of other organs and systems (principal)
CPT/HCPCS: 76700; 76981

== ENCOUNTER 2024-01-08 09:49 | Outpatient (REF) | payer OTHER, SELFPAY ==
[2024-01-09 08:29] LABS: HBc Num1 0.15 S/CO (0.00-0.79); HBsAGNum1 0.45 S/CO (0.00-0.99); Hepatitis A Antibody IgM 0.19 Index (0-0.79); Hepatitis B Core Antibody Nonreactive (Nonreactive); Hepatitis B Surface Antigen Negative (Negative); ~Hepatitis A Antibody IgM Nonreactive (Nonreactive); ~Hepatitis B Surface Antibody NONREACTIVE (Nonreactive); ~Hepatitis C Antibody Nonreactive (Nonreactive)
== END 2024-01-08 09:50 | disposition home or self-care (01) ==
LOC: HO.HMGCLDS 09:49
PROVIDERS: PCP Nurse Practitioner Family; Visit Provider Nurse Practitioner Family
DX: R74.8 Abnormal levels of other serum enzymes (principal)
CPT/HCPCS: 36415; 86704; 86706; 86709; 86803; 87340

== ENCOUNTER 2024-03-18 08:05 | Outpatient (REF) | payer OTHER, SELFPAY ==
[2024-03-18 10:50] LABS: Alanine Aminotransferase 25 U/L (0-40); Albumin Level 4.5 g/dL (3.5-5.0); Alkaline Phosphatase 67 U/L (39-117); Anion Gap 11 (12-20); Aspartate Amino Transferase 24 U/L (5-37); Bilirubin Total 0.7 mg/dL (0.0-1.0); Blood Urea Nitrogen 22 mg/dL (9-16); Calcium 9.5 mg/dL (8.4-10.2); Carbon Dioxide 24 mmol/L (22-29); Chloride 107 mmol/L (96-108); Estimated Glomerular Filt Rate > 60; Glucose Random 85 mg/dL (60-115); Sodium 138 mmol/L (135-145); Total Protein 7.6 g/dL (6.5-8.0)
[2024-03-26 00:14] LABS: FIB-ALT 18 U/L (9-46); FIB-Alpha-2-Macroglobulin 75 mg/dL (106-279); FIB-Apolipoprotein A1 170 mg/dL (94-176); FIB-GGT 16 U/L (3-85); FIB-Haptoglobin 87 mg/dL (43-212); FIB-Total Bilirubin 0.6 mg/dL (0.2-1.2); Liver Fibrosis Score 0.04; Liver Fibrosis Stage F0; Nec Inflam Act Grade A0; Nec Inflam Act Score 0.05; Reference ID 5328003
== END 2024-03-18 08:06 | disposition home or self-care (01) ==
LOC: HO.HMGCLDS 08:05
PROVIDERS: PCP Nurse Practitioner Family; Visit Provider Nurse Practitioner Family
DX: R74.8 Abnormal levels of other serum enzymes (principal); K76.0 Fatty (change of) liver, not elsewhere classified
CPT/HCPCS: 36415; 80053; 81596

== ENCOUNTER 2024-03-20 08:03 | Outpatient (AMB) | payer OTHER, SELFPAY ==
--- NOTE | 2024-03-20 07:25 | MHC.OFFVIS ---
Intake Visit Reasons: F/U Labs 01/09 Allergies rosuvastatin [Crestor] Adverse Reaction (Unknown, Verified 12/06/23 09:15) muscle cramping Medication List - Last Reconciled 03/20/24 by ДМИТРИЙ Palomares- atorvastatin 20 mg PO BEDTIME coenzyme Q10 30 mg PO DAILY 90 days hydrochlorothiazide 12.5 mg PO DAILY HPI HPI F/U Labs 01/09: Details: History of Present Illness The patient is a 58-year-old male presenting with non-alcoholic fatty liver disease (NAFLD). The condition was initially identified on an MRI of the abdomen conducted in June 2023, which also revealed fatty infiltration or a lipoma in the neck of the pancreas. No evidence of carcinoma or other masses was present. The patient has a family history of pancreatic carcinoma. He reports a positive trend down in liver enzyme levels correlating with dietary modifications and a 15-pound weight loss. The patient has discontinued atorvastatin, coenzyme, and hydrochlorothiazide but continues monitoring his blood pressure, which has stabilized around 140 systolic. There is a pending liver fibrosis panel, and previous CA 19-9 levels were not elevated. The patient has also reduced alcohol consumption, contributing to improved liver enzyme levels. Review of Systems - Cardiovascular: Reports systolic blood pressure in 140s. - Gastrointestinal: Denies any symptoms related to pancreatic carcinoma. -denies any CP, SOB, fevers, chills, CARTER, blurred vision, abd pain, n/v, and dizziness Plan - Monitor blood pressure regularly with the patient continuing his dietary modifications and exercise, having discontinued hydrochlorothiazide. - Await the results of the pending liver fibrosis panel to assess the progression of NAFLD. - Repeat cholesterol laboratory tests in two months to evaluate lipid levels following the discontinuation of atorvastatin. - Ensure periodic follow-up with Gastroenterology for continued monitoring of NAFLD and pancreatic status. Patient was informed and verbally consented to the use of an ambient scribe for clinic note documentation during this visit. Discussion Notes I discussed with the patient the importance of maintaining his current lifestyle modifications, including dietary changes and decreased alcohol consumption, which have positively influenced his liver enzyme levels. The pending liver fibrosis panel will help determine any progression of his NAFLD. We agreed to repeat cholesterol testing in two months to monitor the impact of discontinuing atorvastatin. I emphasized the necessity of regular blood pressure monitoring and the impact of lifestyle changes on his overall cardiovascular health. Follow-up with Gastroenterology is planned to manage his liver and pancreatic conditions due to the family history of pancreatic cancer. Patient Instructions - Continue the current diet and exercise regimen to aid in weight loss and improve liver health. - Monitor blood pressure at home regularly and report any significant changes. - Abstain from or limit alcohol consumption to support liver function. - Attend the scheduled follow-up with Gastroenterology for ongoing evaluation. - Repeat cholesterol levels in two months as discussed. [facility] Medical History (Updated 03/20/24 @ 07:25 by KRISTI Palomares) Right shoulder pain Elevated cholesterol HTN (hypertension) Family history of pancreatic cancer Left inguinal hernia Surgical History History of right inguinal hernia repair Hx of colonoscopy Family History Maternal Aunt No problems noted. Father Substance use disorder Mother Substance use disorder Mental health disorder Maternal Grandfather Substance use disorder Maternal Grandmother Substance use disorder Paternal Grandfather Substance use disorder Paternal Uncle Substance use disorder Maternal Aunt Substance use disorder Paternal Aunt Substance use disorder Maternal Uncle Substance use disorder Family/Other Mental health disorder Social History Housing: House Patient Tobacco Use Status: Former Tobacco user Years Smoked: 40 years ago e-Cigarette/Vaping Use: Never Used Second Hand Smoke Exposure: No service: No Current occupational status: employed 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 Current occupational exposures/hazards: No Cognitive needs: No Hearing needs: No Vision needs: No Assessment & Plan Assessment & Plan (1) Fatty liver: Code(s): K76.0 - Fatty (change of) liver, not elsewhere classified Category: Medical (2) Elevated liver enzymes: Code(s): R74.8 - Abnormal levels of other serum enzymes Category: Medical (3) Dyslipidemia: Code(s): E78.5 - Hyperlipidemia, unspecified Category: Medical (4) HTN (hypertension): Code(s): I10 - Essential (primary) hypertension Category: Medical Plan . Orders: Orders Lipid Panel Today E78.5 - Hyperlipidemia, unspecified, K76.0 - Fatty (change of) liver, not elsewhere classified Complete Blood Count Auto Diff Today E78.5 - Hyperlipidemia, unspecified, K76.0 - Fatty (change of) liver, not elsewhere classified Comprehensive [place]. Panel Fast Today E78.5 - Hyperlipidemia, unspecified, K76.0 - Fatty (change of) liver, not elsewhere classified Coding Level of Care Code Tele Est Pt Level 3 (09428) Diagnoses Fatty liver K76.0 Elevated liver enzymes R74.8 Dyslipidemia E78.5 HTN (hypertension) I10
== END 2024-03-20 08:28 | disposition home or self-care (01) ==
LOC: HO.HMCC 08:03
PROVIDERS: PCP Nurse Practitioner Family; Visit Provider Nurse Practitioner Family
DX: K76.0 Fatty (change of) liver, not elsewhere classified (principal); R74.8 Abnormal levels of other serum enzymes; E78.5 Hyperlipidemia, unspecified; I10 Essential (primary) hypertension

== ENCOUNTER 2024-06-20 07:04 | Outpatient (REF) | payer OTHER, SELFPAY ==
[2024-06-20 10:28] LABS: MANUAL DIFF FLAG NO
[2024-06-20 10:45] LABS: Basophils Percent Auto 0.6 % (0-2); Eosinophils Absolute Auto 0.1 X10*3/uL (0.0-0.4); Eosinophils Percent Auto 1.1 % (0-4); Hematocrit 47.9 % (42.0-52.0); Hemoglobin 15.7 g/dl (14.0-18.0); Imm Gran Abs Auto 0.02 X10*3/uL (0.00-0.03); Imm Gran Pct Auto 0.3 % (0.0-0.4); Lymphocytes Absolute Auto 2.1 X10*3/uL (1.2-4.9); Lymphocytes Percent Auto 32.8 % (20-40); Mean Corpuscular HGB Conc 32.8 g/dl (31.0-36.0); Mean Corpuscular Hemoglobin 29.8 pg (27.0-33.0); Mean Corpuscular Volume 90.9 fL (80.0-98.0); Monocytes Absolute Auto 0.6 X10*3/uL (0.1-1.2); Monocytes Percent Auto 8.7 % (2-11); Neutrophils Absolute Auto 3.7 x10*3/uL (2.0-8.3); Neutrophils Percent Auto 56.5 % (45-73); Platelet Count 223 X10*3/uL (160-400); Red Blood Count 5.27 X10*6/uL (4.60-5.80); Red Cell Distribution Width 12.9 % (11.0-16.0); White Blood Count 6.5 X10*3/uL (4.8-10.8)
[2024-06-20 11:01] LABS: Alanine Aminotransferase 31 U/L (0-40); Albumin Level 4.5 g/dL (3.5-5.0); Alkaline Phosphatase 68 U/L (39-117); Anion Gap 12 (12-20); Aspartate Amino Transferase 27 U/L (5-37); Bilirubin Total 0.4 mg/dL (0.0-1.0); Blood Urea Nitrogen 16 mg/dL (9-16); Carbon Dioxide 27 mmol/L (22-29); Chloride 105 mmol/L (96-108); Cholesterol 232 mg/dL (<200); Estimated Glomerular Filt Rate > 60; Glucose Fasting 97 mg/dL (60-99); HDL Cholesterol 57 mg/dL (>40); LDL Cholesterol Calculated 152 mg/dL (<100); Potassium 4.5 mmol/L (3.3-5.1); Sodium 139 mmol/L (135-145); Total Protein 7.4 g/dL (6.5-8.0); Triglycerides 115 mg/dL (<150)
== END 2024-06-20 07:05 | disposition home or self-care (01) ==
LOC: HO.HMGCLDS 07:04
PROVIDERS: PCP Nurse Practitioner Family; Visit Provider Nurse Practitioner Family
DX: K76.0 Fatty (change of) liver, not elsewhere classified (principal); E78.5 Hyperlipidemia, unspecified
CPT/HCPCS: 36415; 80053; 80061; 85025

== ENCOUNTER 2024-06-27 09:14 | Outpatient (AMB) | payer OTHER, SELFPAY ==
[2024-06-27 09:19] VITALS: BP 140/82; PULSE 66; O2SAT 99; BMI 23.5
--- NOTE | 2024-06-27 09:19 | MHC.PC.OV ---
Vital Signs 06/27/24 09:19 Height 5 ft 8 in Weight 154 lb 4 oz BMI 23.5 BP 140/82 H Blood Pressure Location Lt brachial Position Sitting Pulse 66 Pulse Source Pulse Oximeter Pulse Oximetry (%) 99 Oxygen Delivery Method Room Air Intake Visit Reasons: Physical - see comments [employer] Sales Representative Required: No Accompanied by: Self / Same As Patient Allergies rosuvastatin [Crestor] Adverse Reaction (Unknown, Verified 06/27/24 09:19) muscle cramping Medication List - Last Reconciled 06/27/24 by SHAYY Palomares No Known Home Meds Tobacco use date assessed: 06/27/24 Dental Screening Dental Screen Date: 06/27/24 Did you have a dental visit in the last 12 months?: Yes Did you have a dental problem in the last 6 months where you did not have access to dental care?: No Was dental information given to patient?: Patient has dentist HPI Physical - see comments HPI Details History of Present Illness The patient is a 59-year-old male presenting for a routine wellness examination. His medical history is significant for a past diagnosis of fatty liver, with liver enzymes recently reported within normal limits. He continues to monitor his hypertension independently, with a general aim to maintain optimal cardiovascular health. The patient is being observed by a dramatic reader due to a pancreatic lipoma, which requires ongoing surveillance due to a family history of pancreatic cancer. He denies symptoms such as fever, chills, chest pain, or respiratory issues. Abdominal discomfort is noted, though no bowel irregularities such as constipation or diarrhea are reported. The patient's psychiatric history is negative for suicidal or homicidal ideation. Socially, he is contemplating skilled nursing and is looking forward to future endeavors, reflecting a positive psychological state. Health Maintenance - Surveillance of pancreatic lipoma due to family history of pancreatic cancer - Monitoring of blood pressure at home to manage essential hypertension - Plan to complete PSA screening test in August -colon screen is up to date Social History - Employment status: Planning for skilled nursing - Housing: Intends to build a new house in [place] Review of Systems - General: Denies fever and chills - Cardiovascular: Denies chest pain - Respiratory: Denies shortness of breath - Gastrointestinal: Reports abdominal discomfort; denies constipation and diarrhea - Psychiatric: Denies suicidal and homicidal ideation Physical Exam General: Cooperative, healthy appearing, comfortable, no acute distress and well developed Orientation: Patient oriented x3 Limitations: No limitations Head: Normal to inspection Ears: Hearing grossly normal bilaterally Nose: Normal external nose present Face and sinus: Normal facial exam Eyes: Appearance normal, both eyes and all related structures Neck: Normal visual inspection and Yes full ROM Respiratory: Normal respiratory effort and able to speak in complete sentences. Clear to auscultation bilaterally Cardiovascular: Regular rate and rhythm. Normal S1 and S2 GI: Normal to inspection. Soft to palpation and nontender Skin: No rashes or lesions noted Neuro: Patient oriented x3 Extremities: Normal to inspection Results - Labs: Liver enzymes within normal limits Plan The patient will undergo a PSA test in August, adhering to prostate health evaluations, and will not partake in a digital rectal examination by choice. Ongoing blood pressure monitoring at home is advised to assist with the management of essential hypertension. The pancreatic lipoma requires continued observation through his dramatic reader. His liver function tests indicate no present concerns, with enzymes within normal limits. The patient is encouraged to pursue healthy lifestyle choices, consistent with transitioning into skilled nursing and personal endeavors. Discussion Notes I discussed with the patient the current management of his essential hypertension, emphasizing the importance of self-monitoring his blood pressure. The implications of his fatty liver were addressed, highlighting that the normal liver enzyme levels suggest effective current management. We reviewed the ongoing surveillance of the pancreatic lipoma and its connection to his family history of cancer, highlighting the importance of continued gastroenterology care. We went over the decision to proceed with PSA testing in August rather than a digital rectal exam, respecting his preference. Anticipatory guidance was provided focusing on health maintenance, transition towards skilled nursing, and readiness for future health assessments. Patient Instructions - Schedule PSA test for August. - Keep monitoring blood pressure at home regularly. - Continue follow-up with dramatic reader for pancreatic lipoma. - Maintain a healthy lifestyle to support liver health and overall wellness. - Follow up routinely with primary care for health maintenance and management. [facility] Medical History Subacromial tendinitis of left shoulder Tendinosis of right shoulder Right shoulder pain Elevated cholesterol HTN (hypertension) Family history of pancreatic cancer Left inguinal hernia Surgical History History of right inguinal hernia repair Hx of colonoscopy Family History Maternal Aunt No problems noted. Father Substance use disorder Mother Substance use disorder Mental health disorder Maternal Grandfather Substance use disorder Maternal Grandmother Substance use disorder Paternal Grandfather Substance use disorder Paternal Uncle Substance use disorder Maternal Aunt Substance use disorder Paternal Aunt Substance use disorder Maternal Uncle Substance use disorder Family/Other Mental health disorder Social History Housing: House Patient Tobacco Use Status: Former Tobacco user Years Smoked: 40 years ago e-Cigarette/Vaping Use: Never Used Second Hand Smoke Exposure: No service: No Current occupational status: employed Current occupation: [employer] man Current occupational exposures/hazards: No Cognitive needs: No Hearing needs: No Vision needs: No Questionnaire PHQ-9 Over the last 2 weeks, how often have you been bothered by any of the following problems? 1. Little interest or pleasure in doing things: not at all 2. Feeling down, depressed, or hopeless: not at all 3. Trouble falling or staying asleep, or sleeping too much: not at all 4. Feeling tired or having little energy: not at all 5. Poor appetite or overeating: not at all 6. Feeling bad about yourself - or that you are a failure or have let yourself or your family down: not at all 7. Trouble concentrating on things, such as reading the newspaper or watching television: not at all 8. Moving or speaking so slowly that other people could have noticed. Or the opposite - being so fidgety or restless that you have been moving around a lot more than usual: not at all 9. Thoughts that you would be better off or of hurting yourself in some way: not at all Total score: 0 Depression Screening Interpretation: Negative Depression Screening Done: Yes 71516 - PHQ-9 Billing: Yes Source: Developed by Drs. Atilio Tejada, Karma Garay, Ravi Luis and colleagues, with an educational mik from [employer]. Thrive Questionnaire Date Thrive assessed: 06/27/24 I am a: Patient What is your living situation today?: I have a steady place to live Within the past 12 months, did the food you bought not last and you didn't have the money to get more?: Never true Within the past 12 months, did you worry whether your food would run out before you got money to buy more?: Never true Do you have trouble paying for medicines?: No Do you have trouble getting transportation to medical appointments?: No Do you have trouble paying your heating and electricity bill?: No Do you have trouble taking care of your child, family member or friend?: No Do you have trouble with day-to-day activities such as bathing, preparing meals, shopping, managing finances, etc.?: No Are you currently unemployed and looking for a job?: No Are you interested in more education?: No Please select the resources that you would like help with: None Currently or been in a relationship where the following occur: No concerns reported THRIVE Score: 0 AUDIT C Alcohol Use Questionnaire (AUDIT-C) 1. How often do you have a drink containing alcohol?: 2-3 times a week 2. How many drinks containing alcohol do you have on a typical day when you are drinking?: 1 or 2 3. How often do you have six or more drinks on one occasion?: Never Total Score: 3 Score Reviewed/Action Taken: Yes DANIELLE-7 AMB Questionnaire DANIELLE-7 Date DANIELLE - 7 assessed: 06/27/24 Feeling nervous, anxious, or on edge: 1 = Several days Not being able to stop or control worryin = Not at all Worrying too much about different things: 0 = Not at all Trouble relaxin = Several days Being so restless that it is hard to sit still: 1 = Several days Becoming easily annoyed or irritable: 0 = Not at all Feeling afraid as if something awful might happen: 0 = Not at all Total DANIELLE-7 score (0-4 normal; 5-9 mild; 10-14 moderate; 15-21 severe): 3 Source: Developed by Drs. Atilio Tejada, Karma Garay, Ravi Luis and colleagues, with an educational mik from [employer]. DANIELLE-7 Assessment Billing DANIELLE-7 Assessment Tool: DANIELLE-7 Assessment 77294 Physical exam (Primary Care) Vital Signs: Last Vital Signs Pulse 66 06/27/24 09:19 BP 140/82 H 06/27/24 09:19 Pulse Ox 99 06/27/24 09:19 Oxygen Delivery Method Room Air 06/27/24 09:19 BMI result Body Mass Index 23.5 Tobacco/Smoking Status: Tobacco use Status Tobacco use date assessed 06/27/24 06/27/24 09:20 Patient Tobacco Use Status Former Tobacco user 06/27/24 09:20 e-Cigarette/Vaping Use Never Used 06/27/24 09:20 PHQ-9: PHQ-9 Score PHQ-9: Total score 0 06/27/24 09:20 Depression Screening Interpretation: Negative Thrive Assessment: Date of Thrive Assessment Date Thrive assessed 06/27/24 06/27/24 09:20 Currently or been in a relationship where the following occur: No concerns reported Coding Level of Care Code Est Pt Prev Care 40-64y(76752) Diagnoses Screening PSA (prostate specific antigen) Z12.5 HTN (hypertension) I10 Family history of pancreatic cancer Z80.0 Physical exam Z00.00 Additional Codes DANIELLE-7 Assessment Billing - DANIELLE-7 Assessment Tool: DANIELLE-7 Assessment 78259 ([id number]) PHQ-9 - 17252 - PHQ-9 Billing: Yes ([id number]) Assessment & Plan Assessment & Plan (1) Screening PSA (prostate specific antigen): Code(s): Z12.5 - Encounter for screening for malignant neoplasm of prostate Category: Medical (2) HTN (hypertension): Code(s): I10 - Essential (primary) hypertension Category: Medical (3) Family history of pancreatic cancer: Code(s): Z80.0 - Family history of malignant neoplasm of digestive organs Category: Medical (4) Physical exam: Code(s): Z00.00 - Encounter for general adult medical examination without abnormal findings Category: Medical Plan . Orders: Orders Prostate Specific Antigen Scr Today Z12.5 - Encounter for screening for malignant neoplasm of prostate
== END 2024-06-27 10:08 | disposition home or self-care (01) ==
LOC: HO.HMCC 09:15
PROVIDERS: PCP Nurse Practitioner Family; Visit Provider Nurse Practitioner Family
DX: Z12.5 Encounter for screening for malignant neoplasm of prostate (principal); I10 Essential (primary) hypertension; Z80.0 Family history of malignant neoplasm of digestive organs; Z00.00 Encounter for general adult medical examination without abnormal findings

== ENCOUNTER → 2024-06-27 09:14 | Outpatient (BNVA) | payer OTHER, SELFPAY | PROVIDERS: PCP Nurse Practitioner Family; Visit Provider Nurse Practitioner Family | DX: Z00.00 Encounter for general adult medical examination without abnormal findings (principal); K76.0 Fatty (change of) liver, not elsewhere classified; I10 Essential (primary) hypertension; Z80.0 Family history of malignant neoplasm of digestive organs | CPT/HCPCS: 96127 ==

== ENCOUNTER 2024-12-30 07:45 | Outpatient (REF) | payer OTHER, SELFPAY ==
--- OUTSIDE RECORDS SUMMARY | 2024-12-30 08:12 | XMS_ITS | Clinical Summary ---
Author Organization [facility] Address [facility] [employer] [facility] [address] [place] [phone] Phone Care Team Providers Care Digital Associate Media Director Name Role Phone Benjamin Carey INTERIOR DESIGN PROFESSIONAL Primary Care Provider + Allergies Active Allergy Reactions Criticality Noted Date Comments Rosuvastatin Myalgia 05/15/2024 Medications No known medications Family History Medical History Relation Comments Colon cancer Paternal Grandfather Relation Status Comments Paternal Grandfather Social History Tobacco Use Types Packs/Day Years Used Date Smoking Tobacco: Former Cigarettes Q uit: 1994 Smokeless Tobacco: Never Tobacco Cessation:Counseling Given: Not Answered Alcohol Use Standard Drinks/Week Comments Yes 2 (1 standard drink = 0.6 oz pur e alcohol) 2 per week Education Answer Date Recorded Are you interested in more education? Not on patt e 05/14/2024 Are you concerned about learning? Not on file 05/14/2024 No 05/14/2024 No 05/14/2024 Digital Access Answer Date Recorded No 05/14/2024 No 05/14/2024 Reliable internet access at home? Not on file 05/14/2024 Device with a working camera? Not on file Intimate Partner Violence Answer Date R ecorded Are you denied basic needs s uch as food, clothing, or medical care? No 05/20/2024 In the past 12 months have y ou been in a relationship with a person who hurts, threatens, or tries to control you? No 05/20/2024 Are you denied basic needs s uch as food, clothing, or medical care? No 05/20/2024 In the past 12 months have y ou been in a relationship with a person who hurts, threatens, or tries to control you? No 05/20/2024 Sex and Gender Information Value Date Recorded Sex Assigned at Not on file Legal Sex Male 9:40 PM EDT Gender Identity Not on file Sexual Orientation Not on file Last Filed Vital Signs Vital Sign Reading Time Taken Comments Blood Pressure 119/83 05/20/2024 11:20 AM EDT Pulse 69 05/20/2024 11:20 AM EDT Temperature 36 C (96.8 F) 05/20/2024 11:09 AM EDT Respiratory Rate 22 05/20/2024 11:20 AM EDT Oxygen Saturation 100% 05/20/2024 11:20 AM EDT Inhaled Oxygen Concentration - - Weight 68.9 kg (152 lb) 05/15/2024 1:39 PM EDT Height 172.7 cm (5' 8 ) 05/15/2024 1:39 PM EDT Body Mass Index 23.11 05/15/2024 1:39 PM EDT Plan of Treatment Upcoming Encounters Date Type Department Care Team (Late st Contact Info) Description 12/31/2024 12:30 PM EST Procedure visit [facility] [address] [place] [phone] Unknown, Unknown, MD Cordero, Yunior Silvestre MD [address] [place] [phone] [email or web address] Health Maintenance Due Date Last Done Comments Adult Td,Tdap Booster 1965 LIPID PANEL 1965 DEPRESSION SCREENING 1977 HEPATITIS C SCREENING 04/24/1983 HIV ONE-TIME SCREENING (18-6 5 YEARS) 04/24/1983 HEPATITIS A VACCINES (1 of 2 - Risk 2-dose series) 1984 PNEUMOCOCCAL VACCINES (50+ years) (1 of 2 - PCV) 1984 COLOGUARD 2010 FIT TEST 2010 FOBT 2010 SIGMOIDOSCOPY 2010 VIRTUAL COLONOSCOPY 2010 RSV VACCINE (1 - Risk 50-74 years 1-dose series) 04/24/2015 ZOSTER VACCINES (1 of 2) 04/24/2015 INFLUENZA VACCINE (#1) 2024 COVID-19 VACCINE (2024-2 6 season) 2024 02/08/2021, 05/28/2020 SMOKING Hx and SMOKELESS TOBACCO SCREENING 05/20/2025 05/20/2024 COLONOSCOPY 05/20/2034 05/20/2024 COLORECTAL CANCER SCREENING 05/20/2034 HIB VACCINES Aged Out No longer eligi ble based on patient's age to complete this topic IPV VACCINES Aged Out No longer eligi ble based on patient's age to complete this topic MENINGOCOCCAL VACCINES (ACWY) Aged Out No longer eligible based on patient's age to complete this topic MENINGOCOCCAL VACCINES (B) Aged Out N o longer eligible based on patient's age to complete this topic Medical Devices Not on file Procedures Procedure Name Priority Date/Time Associated Diagnosis Comments ENDOSCOPY, COLON 05/20/2024 10:5 2 AM EDT from Last 3 Months or Most Recently Relevant to Health Maintenance Results * ENDOSCOPY, COLON (05/20/2024 10:52 AM EDT) Narrative Transcriptions Yunior Cordero MD - 05/20/2024 10:52 AM EDT [facility] Patient Name: Rui Walker Attending MD:: YUNIOR CORDERO MD, Procedure Date: 05/20/2024 10:52 AM Date of : 1965 Age: 59 Admit Type: Outpatient Gender: Male Room: [place] [address] Referring MD: Benjamin Carey Exam Type: Colonoscopy Indications: Screening for colon cancer: Family history of colorectal cancer in distant relative(s) 60 orolder, Colon cancer screening in patient at increasedrisk: Family history of 1st-degree relative with colon polyps, Last colonoscopy: February 2017 Medications: Monitored Anesthesia Care Procedure: Informed consent was obtained from the patientafter discussion of the indications, limitations, alternatives, benefits, and risks of the procedure. Risks specifically discussed include but are not limited to medication reactions, missed lesions, bleeding, perforation, or the need for emergent surgery. Throughout the procedure, the patient's blood pressure, pulse, end-tidal CO2, and oxygensaturations were monitored continuously. The Olympus pediatric variable colonoscopePCF-[id number] #5 was introduced through the anus and advanced tothe terminal ileum, with identification of theappendiceal orifice and IC valve. The colonoscopy was performed without difficulty. The patient tolerated the procedure fairly well. The quality of the bowel preparation was evaluated using the BBPS (BostonBowel Preparation Scale) with scores of: Right Colon = 2 (minor amount of residual staining, small fragmentsof stool and/or opaque liquid, but mucosa seen well), Transverse Colon = 3 (entire mucosa seen well withno residual staining, small fragments of stool oropaque liquid) and Left Colon = 3 (entire mucosa seen well with no residual staining, small fragments of stoolor opaque liquid). The total BBPS score equals 8. The quality of the bowel preparation was good. The terminal ileum, ileocecal valve, appendicealorifice, and rectum were photographed. Complications: No immediate complications. Findings: The perianal and digital rectal examinations were normal. Pertinent negatives include normalsphincter tone. Many small-mouthed diverticula were found in the sigmoid colon and descending colon. Retroflexion in the right colon was performed. The terminal ileum appeared normal. Non-bleeding internal hemorrhoids were found during retroflexion. The hemorrhoids were moderate. The exam was otherwise without abnormality ondirect and retroflexion views. Impression: - Diverticulosis in the sigmoid colon and in the descending colon. - The examined portion of the ileum was normal. - Non-bleeding internal hemorrhoids. - The examination was otherwise normal on directand retroflexion views. - No specimens collected. Recommendation: - Repeat colonoscopy in 7-10 years for screening purposes. - Consider hemorrhoidal band ligation. YUNIOR CORDERO MD 05/20/2024 11:10:18 AM This report has been signed electronically. Number of Addenda: 0 Note Initiated On: 05/20/2024 10:52 AM Procedure Code(s): --- Professional --- 94133, Colonoscopy, flexible; diagnostic, including collection of specimen(s) by brushing or washing, when performed (separateprocedure) --- Technical --- 54386, Colonoscopy, flexible; diagnostic, including collection of specimen(s) by brushing or washing, when performed (separateprocedure) Diagnosis Code(s): --- Professional --- Z12.11, Encounter for screening for malignantneoplasm of colon Z80.0, Family history of malignant neoplasm of digestive organs Z83.71, Family history of colonic polyps K64.8, Other hemorrhoids K57.30, Diverticulosis of large intestine without perforation or abscess without bleeding --- Technical --- Z12.11, Encounter for screening for malignantneoplasm of colon Z80.0, Family history of malignant neoplasm of digestive organs Z83.71, Family history of colonic polyps K64.8, Other hemorrhoids K57.30, Diverticulosis of large intestine without perforation or abscess without bleeding CPT copyright 2021 [employer]. All rights reserved. The codes documented in this report are preliminary and upon web merchant reviewmay be revised to meet current compliance requirements. Procedure Date: 05/20/2024 10:52:[address] [place] [id number] Benjamin Carey NP GI PROCEDURE ORDERABLES Final Result from Last 3 Months or Most Recently Relevant to Health Maintenance Insurance O O O O O O Care Teams Digital Associate Media Director Relationship Specialty Start Date End Date Benjamin Carey NP [address] [place] [address] [place] [address] PCP - General Nurse Practitioner 05/14/24 Additional Source Comments The information contained in this document represents components of the legal health record. It is not the complete legal health record.[facility]
--- OUTSIDE RECORDS SUMMARY | 2024-12-30 08:12 | XMS_ITS | Encounter Summary ---
Author Organization [facility] Address [address] [place] [phone] Phone Care Team Providers Care Sheet Metal Assembler And Riveter Name Role Phone Benjamin Carey CYLINDER TESTER Primary Care Provider + Encounter Details Date Type Department Care Team (Latest Contact Info) Description 05/14/2024 Transcribe Orders [facility] [address] [place] [address] Bartolome Franco MD [address] [address] [email or web address] HARRISON (nonalcoholic steatohepatitis) (Primary Dx) Social History Tobacco Use Types Packs/Day Years Used Date Smoking Tobacco: Never Assessed Education Answer Date Recorded Are you interested in more education? Not on patt e 05/14/2024 Are you concerned about learning? Not on file 05/14/2024 No 05/14/2024 No 05/14/2024 Digital Access Answer Date Recorded No 05/14/2024 No 05/14/2024 Reliable internet access at home? Not on file 05/14/2024 Device with a working camera? Not on file Intimate Partner Violence Answer Date R ecorded Denied Basic Needs Not on file 05/15/2024 In the past 12 months have y ou been in a relationship with a person who hurts, threatens, or tries to control you? No 05/15/2024 Worried food would run out Not on file 05/15 In the past 12 months have y ou been in a relationship with a person who hurts, threatens, or tries to control you? No 05/15/2024 Sex and Gender Information Value Date Recorded Sex Assigned at Not on file Legal Sex Male 9:40 PM EDT Gender Identity Not on file Sexual Orientation Not on file documented as of this encounter Plan of Treatment Upcoming Encounters Date Type Department Care Team (Late st Contact Info) Description 12/31/2024 12:30 PM EST Procedure visit [facility] [address] [place] [address] Unknown, Unknown, Bartolome Tariq MD [address] [address] [email or web address] documented as of this encounter Results * Comprehensive metabolic panel (05/14/2024 8:30 AM EDT) SODIUM 140 133 - 146 mmol/L [facility] POTASSIUM 4.3 3.3 - 5.1 mmol/L [facility] CHLORIDE 103 96 - 108 mmol/L [facility] CO2 28 21 - 35 mmol/L [facility] BUN 14 6 - 19 mg/dL [facility] CREATININE 1.00 0.5 - 1.5 mg/dL [facility] GLUCOSE 98 70 - 99 mg/dL [facility] ALBUMIN 4.4 3.9 - 4.8 g/dL [facility] TOTAL PROTEIN 7.4 6.5 - 8.0 g/dL [facility] CALCIUM 9.8 8.4 - 10.3 mg/dL [facility] ALKALINE PHOSPHATASE 73 39 - 117 U/L [facility] TOTAL BILIRUBIN 0.5 0.0 - 1.2 mg/dL [facility] AST 19 0 - 37 U/L [facility] ALT 19 0 - 40 U/L [facility] GLOBULIN 3.0 1 - 4.8 g/dL [facility] EGFR 87 >59 mL/min/1.7 3m2 [facility] Comment:Estimated glomerular filtration rate calculated using the CKD-EPI refit equation. ANION GAP 13 10 - 20 mmol/L [facility] Blood 05/14/2024 8:30 AM EDT 05/14/2024 8:37 AM EDT us Bartolome Franco MD LAB BLOOD BKR ORDERABLES Final Result Performing Organization Address [facility] Co de Phone Number [address] [phone] * CBC (05/14/2024 8:30 AM EDT) WBC 7.17 4.00 - 11.00 K/uL [facility] RBC 5.31 4.50 - 5.90 M/uL [facility] HGB 15.7 13.5 - 17.5 g/dL [facility] HCT 48.6 41.0 - 53.0 % [facility] PLT 227 150 - 450 K/uL [facility] MCV 91.5 80.0 - 100.0 fL [facility] MCH 29.6 27.0 - 31.0 pg [facility] MCHC 32.3 32.0 - 36.0 g/dL [facility] RDW 12.8 11.5 - 14.5 % [facility] MPV 9.9 8.4 - 12.0 fL [facility] NRBC 0.00 0.00 /100 WBCs [facility] ABSOLUTE NRBC 0.00 0.00 K/uL [facility] Blood 05/14/2024 8:30 AM EDT 05/14/2024 8:37 AM EDT us Bartolome Franco MD LAB BLOOD BKR ORDERABLES Final Result Performing Organization Address [facility] Co de Phone Number [address] [phone] documented in this encounter Visit Diagnoses Diagnosis HARRISON (nonalcoholic steatohepatitis)- Primary Other chronic nonalcoholic liver disease documented in this encounter Care Teams Sheet Metal Assembler And Riveter Relationship Specialty Start Date End Date Benjamin Carey NP 1961 [facility] [place] [address] PCP - General Nurse Practitioner 05/14/24 documented as of this encounter Additional Source Comments The information contained in this document represents components of the legal health record. It is not the complete legal health record.[facility]
--- OUTSIDE RECORDS SUMMARY | 2024-12-30 08:13 | XMS_ITS | Encounter Summary ---
Author Organization [facility] Address [facility] [address] [place] [phone] Phone Care Team Providers Care Hospice Clinical Marketer Name Role Phone Benjamin Carey PLANT GUIDE Primary Care Provider + Encounter Details Date Type Department Care Team (Late st Contact Info) Description 05/20/2024 Procedure Pass [facility] Endoscopy Admitting Dept Virtual Department [address] [place] [address] Social History Tobacco Use Types Packs/Day Years Used Date Smoking Tobacco: Former Cigarettes Q uit: 1994 Smokeless Tobacco: Never Alcohol Use Standard Drinks/Week Comments Yes 2 [...] Description 12/31/2024 12:30 PM EST Procedure visit [facility] [address] [place] [address] Unknown, Unknown, Bartolome Tariq MD [address] [address] [email or web address] documented as of this encounter Visit Diagnoses Not on filedocumented in this encounter Care Teams Hospice Clinical Marketer Relationship Specialty Start Date End Date Benjamin Carey NP 1961 [facility] [place] [address] PCP - General Nurse Practitioner 05/14/24 documented as of this encounter Additional Source Comments The information contained in this document represents components of the legal health record. It is not the complete legal health record.[facility]
[2024-12-30 10:14] LABS: Appearance Urine Clear; Glucose Urine UA Negative (Negative); PH 6.5 (5.0-9.0); Specific Gravity - Urine 1.015 (1.005-1.025)
[2024-12-30 10:15] LABS: MANUAL DIFF FLAG NO
[2024-12-30 10:34] LABS: Hematocrit 48.0 % (42.0-52.0); Hemoglobin 15.2 g/dl (14.0-18.0); Imm Gran Abs Auto 0.02 X10*3/uL (0.00-0.03); Imm Gran Pct Auto 0.3 % (0.0-0.4); Lymphocytes Absolute Auto 2.1 X10*3/uL (1.2-4.9); Mean Corpuscular HGB Conc 31.7 g/dl (31.0-36.0); Mean Corpuscular Hemoglobin 30.2 pg (27.0-33.0); Mean Corpuscular Volume 95.2 fL (80.0-98.0); NRBC Abs Auto 0.000 X10*3/uL (0.0-0.012); NRBC Pct Auto 0.0 /100WBC (0.0-0.2); Platelet Count 229 X10*3/uL (160-400); Red Blood Count 5.04 X10*6/uL (4.60-5.80); White Blood Count 7.6 X10*3/uL (4.8-10.8)
[2024-12-30 10:59] LABS: Alanine Aminotransferase 30 U/L (0-40); Albumin Level 4.3 g/dL (3.5-5.0); Alkaline Phosphatase 73 U/L (39-117); Anion Gap 12 (12-20); Aspartate Amino Transferase 29 U/L (5-37); Blood Urea Nitrogen 17 mg/dL (9-16); Calcium 9.4 mg/dL (8.4-10.2); Carbon Dioxide 25 mmol/L (22-29); Chloride 105 mmol/L (96-108); Cholesterol 228 mg/dL (<200); Estimated Glomerular Filt Rate > 60; HDL Cholesterol 65 mg/dL (>40); Potassium 4.4 mmol/L (3.3-5.1); Sodium 138 mmol/L (135-145); Total Protein 7.0 g/dL (6.5-8.0); Triglycerides 139 mg/dL (<150)
== END 2024-12-30 07:46 | disposition home or self-care (01) ==
LOC: HO.HMGCLDS 07:45
PROVIDERS: PCP Nurse Practitioner Family; Visit Provider Nurse Practitioner Family
DX: I10 Essential (primary) hypertension (principal); E55.9 Vitamin D deficiency, unspecified; Z12.5 Encounter for screening for malignant neoplasm of prostate
CPT/HCPCS: 36415; 80053; 80061; 81003; 82306; 84153; 84443; 85025

== ENCOUNTER 2025-01-01 08:31 | Outpatient (AMB) | payer OTHER, SELFPAY ==
[2025-01-01 08:36] VITALS: BP 128/80; PULSE 73; RESP 16; TEMP 36.7; O2SAT 97; BMI 24.0
--- NOTE | 2025-01-01 08:36 | MHC.PC.OV ---
Vital Signs 01/01/25 08:36 Height 5 ft 8 in Weight 158 lb BMI 24.0 BP 128/80 Blood Pressure Location Lt brachial Position Sitting Respiration 16 Pulse 73 Pulse Source Pulse Oximeter Temp 98.0 F Temp Source Oral Pulse Oximetry (%) 97 Oxygen Delivery Method Room Air Intake Visit Reasons: 6m follow up Allergies rosuvastatin (Crestor) Adverse Reaction (Unknown, Verified 01/01/25 09:07) muscle cramping Medication List - Last Reconciled 01/01/25 by ДМИТРИЙ Palomares- bergamot extract (Et[place] Bergamot) 1,000 mg (2 x 500 mg) PO DAILY 90 days Tobacco use date assessed: 06/27/24 Dental Screening Dental Screen Date: 06/27/24 HPI 6m follow up HPI Details Chief Complaint The patient presents for follow-up for dyslipidemia. History of Present Illness The patient is a 59-year-old male presenting for follow-up of dyslipidemia. He has a history of elevated liver enzymes, which have been improving. The patient does not tolerate statins well and is working on his diet. 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 His family history is significant for colon cancer and pancreatic carcinoma, with his grandfather having had pancreatic cancer. Social History - Diet: The patient is actively working on his diet. Health Maintenance - The patient has a family history of colon and pancreatic cancer. - He is under surveillance for a pancreatic lipoma. - He is making dietary modifications to improve his health. Review of Systems - Neurological: Denies dizziness, blurred vision, and headaches. - Cardiovascular: Denies chest pain. - Respiratory: Denies shortness of breath. Physical Exam General: Cooperative, healthy appearing, comfortable, no acute distress and well developed Orientation: Patient oriented x3 Limitations: No limitations Head: Normal to inspection Ears: Hearing grossly normal bilaterally Nose: Normal external nose present Face and sinus: Normal facial exam Eyes: Appearance normal, both eyes and all related structures Neck: Normal visual inspection and Yes full ROM Respiratory: Normal respiratory effort and able to speak in complete sentences. Clear to auscultation bilaterally Cardiovascular: Regular rate and rhythm. Normal S1 and S2 GI: Normal to inspection. Soft to palpation and nontender Skin: No rashes or lesions noted Neuro: Patient oriented x3 Extremities: Normal to inspection Results - Labs: A history of elevated liver enzymes was noted, which are now showing improvement. - Imaging: The patient is being followed for a pancreatic lipoma. Plan 1. Dyslipidemia The patient has dyslipidemia with statin intolerance. He will be started on Etowah bergamot, with a plan to follow up on his lipid levels in approximately two months. 2. Elevated Liver Enzymes The patient has a history of elevated liver enzymes, which are improving with dietary modifications. We will continue to monitor. 3. Pancreatic Lipoma The patient has a pancreatic lipoma and is being followed by a inside channel account manager, particularly given his family history of pancreatic carcinoma. He will continue regular follow-up with gastroenterology. Discussion Notes I discussed the management of the patient's dyslipidemia, noting his intolerance to statins. I recommended starting Etowah bergamot and explained that we would recheck his lipid levels in about two months to monitor his response. We acknowledged the improvement in his liver enzymes, which is attributed to his dietary efforts. We also reviewed the importance of continued follow-up with his inside channel account manager for the pancreatic lipoma, especially given his family history of pancreatic cancer. Patient Instructions - Start taking Etowah bergamot to help manage your cholesterol. - Continue with your current diet, as it appears to be helping your liver enzymes. - Plan to have your cholesterol levels checked again in about two months. - Continue your regular follow-up appointments with your stomach and digestive cyber security systems engineer (inside channel account manager) for your pancreatic lipoma. - Please contact our office if you experience any new chest pain, shortness of breath, dizziness, blurred vision, or headaches. [facility] Medical History Impingement of left shoulder Bilateral shoulder pain Subacromial tendinitis of left shoulder Tendinosis of right shoulder Right shoulder pain Elevated cholesterol HTN (hypertension) Family history of pancreatic cancer Left inguinal hernia Surgical History History of right inguinal hernia repair Hx of colonoscopy Family History Maternal Aunt No problems noted. Father Substance use disorder Mother Substance use disorder Mental health disorder Maternal Grandfather Substance use disorder Maternal Grandmother Substance use disorder Paternal Grandfather Substance use disorder Paternal Uncle Substance use disorder Maternal Aunt Substance use disorder Paternal Aunt Substance use disorder Maternal Uncle Substance use disorder Family/Other Mental health disorder Social History Housing: House Patient Tobacco Use Status: Former Tobacco user Years Smoked: 40 years ago e-Cigarette/Vaping Use: Never Used Second Hand Smoke Exposure: No service: No Current occupational status: employed 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 Current occupational exposures/hazards: No Cognitive needs: No Hearing needs: No Vision needs: No Questionnaire Thrive Questionnaire Date Thrive assessed: 06/27/24 I am a: Patient What is your living situation today?: I have a steady place to live Within the past 12 months, did the food you bought not last and you didn't have the money to get more?: Never true Within the past 12 months, did you worry whether your food would run out before you got money to buy more?: Never true Do you have trouble paying for medicines?: No Do you have trouble getting transportation to medical appointments?: No Do you have trouble paying your heating and electricity bill?: No Do you have trouble taking care of your child, family member or friend?: No Do you have trouble with day-to-day activities such as bathing, preparing meals, shopping, managing finances, etc.?: No Are you currently unemployed and looking for a job?: No Are you interested in more education?: No Please select the resources that you would like help with: None Currently or been in a relationship where the following occur: No concerns reported THRIVE Score: 0 DANIELLE-7 AMB Questionnaire DANIELLE-7 Date DANIELLE - 7 assessed: 06/27/24 Source: Developed by Drs. Atilio Tejada, Karma Garay, Ravi Luis and colleagues, with an educational mik from [employer]. Physical exam (Primary Care) Vital Signs: Last Vital Signs Temp 98.0 F 01/01/25 08:36 Pulse 73 01/01/25 08:36 Resp 16 01/01/25 08:36 BP 128/80 01/01/25 08:36 Pulse Ox 97 01/01/25 08:36 Oxygen Delivery Method Room Air 01/01/25 08:36 BMI result Body Mass Index 24.0 Tobacco/Smoking Status: Tobacco use Status Tobacco use date assessed 06/27/24 01/01/25 08:38 Patient Tobacco Use Status Former Tobacco user 01/01/25 08:38 e-Cigarette/Vaping Use Never Used 01/01/25 08:38 Thrive Assessment: Date of Thrive Assessment Date Thrive assessed 06/27/24 01/01/25 08:38 Currently or been in a relationship where the following occur: No concerns reported Coding Level of Care Code Est Pt Level 3 (93272) Diagnoses Dyslipidemia E78.5 Assessment & Plan Assessment & Plan (1) Dyslipidemia: Code(s): E78.5 - Hyperlipidemia, unspecified Category: Medical Plan . Orders: Orders Comprehensive [place]. Panel Fast 2 Months E78.5 - Hyperlipidemia, unspecified Lipid Panel 2 Months E78.5 - Hyperlipidemia, unspecified Medications: New bergamot extract ([place] Bergamot) 1,000 mg (2 x 500 mg) PO DAILY 180 caps 0RF 90 days
--- OUTSIDE RECORDS SUMMARY | 2025-01-01 16:16 | XMS_ITS | Encounter Summary ---
Author Organization [facility] Address [facility] Content [facility] [address] [place] [phone] Phone Care Team Providers Care Behavioral Therapy Coordinator Name Role Phone Benjamin Carey ACCOUNTS CLERK Primary Care Provider + Encounter Details Date Type Department Care Team (Late st Contact Info) Description 05/20/2024 Procedure Pass [facility] Endoscopy Admitting Dept Virtual Department [address] [place] [address] Social History Tobacco Use Types Packs/Day Years [...] Care Team (Late st Contact Info) Description 03/12/2025 3:00 PM EST Procedure visit [facility] [address] [place] [address] Bartolome Franco MD [address] [address] [email or web address] documented as of this encounter Visit Diagnoses Not on filedocumented in this encounter Care Teams Behavioral Therapy Coordinator Relationship Specialty Start Date End Date Benjamin Carey NP [address] [facility] [place] [id number] PCP - General Nurse Practitioner 05/14/24 documented as of this encounter Additional Source Comments The information contained in this document represents components of the legal health record. It is not the complete legal health record.[facility]
--- OUTSIDE RECORDS SUMMARY | 2025-01-01 16:16 | XMS_ITS | Clinical Summary ---
Author Organization [facility] Address Critical access hospital [employer] [facility] [address] [place] [phone] Phone Care Team Providers Care Research And Evaluation Analyst Name Role Phone Benjamin Carey BODY WELDER Primary Care Provider + Allergies Active Allergy [...] Description 03/12/2025 3:00 PM EST Procedure visit [facility] [address] [place] [address] Yunior Cordero MD [address] [place] [phone] [email or web address] Health Maintenance Due Date Last Done Comments [...] Cordero MD - 05/20/2024 10:52 AM EDT [facility] Patient Name: Rui Walker Attending MD:: YUNIOR CORDERO MD, Procedure Date: 05/20/2024 10:52 AM Date of : 1965 Age: 59 Admit Type: Outpatient Gender: Male Room: [place] [address] Referring MD: Benjamin Carey Exam Type: Colonoscopy [...] 10:52 AM Procedure Code(s): --- Professional --- 94466, Colonoscopy, flexible; diagnostic, including collection of specimen(s) by brushing or washing, when performed (separateprocedure) --- Technical --- 38914, Colonoscopy, flexible; diagnostic, including collection of specimen(s) [...] or abscess without bleeding CPT copyright 2021 [employer]. All rights reserved. The codes documented in this report are preliminary and upon box sealing machine operator reviewmay be revised to meet current compliance requirements. Procedure Date: 05/20/2024 10:52:[address] [place] [address] Benjamin Carey NP GI PROCEDURE ORDERABLES Final Result from Last 3 Months or Most Recently Relevant to Health Maintenance Insurance O O O O O O Care Teams Research And Evaluation Analyst Relationship Specialty Start Date End Date Benjamin Carey NP [address] [place] [address] PCP - General Nurse Practitioner 05/14/24 Additional Source Comments The information contained in this document represents components of the legal health record. It is not the complete legal health record.[facility]
--- OUTSIDE RECORDS SUMMARY | 2025-01-01 16:16 | XMS_ITS | Encounter Summary ---
Author Organization [facility] Address [address] [place] [phone] Phone Care Team Providers Care Math Instructor Name Role Phone Benjamin Carey SALON DESIGNER Primary Care Provider + Encounter Details Date Type Department Care Team (Latest Contact Info) Description 05/14/2024 Transcribe Orders [facility] Phleb [facility] [address] [place] [address] Bartolome Franco MD [address] [address] [email or web address] HARRISON (nonalcoholic steatohepatitis) (Primary Dx) Social History [...] Description 03/12/2025 3:00 PM EST Procedure visit [facility] [address] [place] [address] Bartolome Franco MD [address] [address] [email or web address] documented as of this encounter Results * Comprehensive metabolic panel (05/14/2024 8:30 AM EDT) SODIUM 140 133 - 146 mmol/L [facility] POTASSIUM 4.3 3.3 - 5.1 mmol/L [facility] CHLORIDE 103 96 - 108 mmol/L [facility] CO2 28 21 - 35 mmol/L [facility] BUN 14 6 - 19 mg/dL [facility] CREATININE 1.00 0.5 - 1.5 mg/dL [facility] GLUCOSE 98 70 - 99 mg/dL [facility] ALBUMIN 4.4 3.9 - 4.8 g/dL [facility] TOTAL PROTEIN 7.4 6.5 - 8.0 g/dL [facility] CALCIUM 9.8 8.4 - 10.3 mg/dL [facility] ALKALINE PHOSPHATASE 73 39 - 117 U/L [facility] TOTAL BILIRUBIN 0.5 0.0 - 1.2 mg/dL [facility] AST 19 0 - 37 U/L [facility] ALT 19 0 - 40 U/L [facility] GLOBULIN 3.0 1 - 4.8 g/dL [facility] EGFR 87 >59 mL/min/1.7 3m2 [facility] Comment:Estimated glomerular filtration rate calculated using the CKD-EPI refit equation. ANION GAP 13 10 - 20 mmol/L [facility] Blood 05/14/2024 8:30 AM EDT 05/14/2024 8:37 AM EDT us Bartolome Franco MD LAB BLOOD BKR ORDERABLES Final Result Performing Organization Address [facility] de Phone Number [address] [phone] * CBC (05/14/2024 8:30 AM EDT) WBC 7.17 4.00 - 11.00 K/uL [facility] RBC 5.31 4.50 - 5.90 M/uL [facility] HGB 15.7 13.5 - 17.5 g/dL [facility] HCT 48.6 41.0 - 53.0 % [facility] PLT 227 150 - 450 K/uL [facility] MCV 91.5 80.0 - 100.0 fL [facility] MCH 29.6 27.0 - 31.0 pg [facility] MCHC 32.3 32.0 - 36.0 g/dL [facility] RDW 12.8 11.5 - 14.5 % [facility] MPV 9.9 8.4 - 12.0 fL [facility] NRBC 0.00 0.00 /100 WBCs [facility] ABSOLUTE NRBC 0.00 0.00 K/uL [facility] Blood 05/14/2024 8:30 AM EDT 05/14/2024 8:37 AM EDT us Bartolome Franco MD LAB BLOOD BKR ORDERABLES Final Result Performing Organization Address [facility] Co de Phone Number [address] [phone] documented in this encounter Visit Diagnoses Diagnosis HARRISON (nonalcoholic steatohepatitis)- Primary Other chronic nonalcoholic liver disease documented in this encounter Care Teams Math Instructor Relationship Specialty Start Date End Date Benjamin Carey NP [address] [place] [address] PCP - General Nurse Practitioner 4/1/25 documented as of this encounter Additional Source Comments The information contained in this document represents components of the legal health record. It is not the complete legal health record.[facility]
== END 2025-01-01 09:34 | disposition home or self-care (01) ==
LOC: HO.HMCC 08:32
PROVIDERS: PCP Nurse Practitioner Family; Visit Provider Nurse Practitioner Family
DX: Z23 Encounter for immunization (principal); E78.5 Hyperlipidemia, unspecified

== ENCOUNTER → 2025-01-01 08:31 | Outpatient (BNVA) | payer OTHER, SELFPAY | PROVIDERS: PCP Nurse Practitioner Family; Visit Provider Nurse Practitioner Family | DX: Z23 Encounter for immunization (principal); E78.5 Hyperlipidemia, unspecified; Z79.899 Other long term (current) drug therapy; D17.79 Benign lipomatous neoplasm of other sites; Z80.0 Family history of malignant neoplasm of digestive organs | CPT/HCPCS: 90471; 90715 ==